=== PATIENT | female | born 1935 | race Caucasian/White ===

== ENCOUNTER → 2017-11-30 | Outpatient (REF) | payer MEDICARE, OTHER ==
[2017-11-30 16:53] LABS: BASO % 0.3 % (0.0-1.0); EOS # 0.1 10^3/uL (0.0-0.50); EOS % 0.8 % (0.0-3.0); HEMATOCRIT 33.7 % (36.0-47.0); HEMOGLOBIN 10.9 g/dl (12.0-15.5); IMMATURE GRANULOCYTE % 0.4 % (0-3.0); LYMPH % 10.4 % (24.0-44.0); MEAN CORPUSCULAR HEMOGLOBIN 30.9 pg (27.0-33.0); MEAN CORPUSCULAR HGB CONC 32.3 g/dl (32.0-36.5); MEAN CORPUSCULAR VOLUME 95.5 fl (80.0-96.0); MONO % 9.9 % (0.0-5.0); NEUTROPHILS # 7.7 10^3/uL (1.8-7.7); NEUTROPHILS % 78.2 % (36.0-66.0); PLATELET COUNT, AUTOMATED 279 10^3/uL (150-450); RED BLOOD COUNT 3.53 10^6/uL (4.00-5.40); WHITE BLOOD COUNT 9.9 10^3/uL (4.0-10.0)
[2017-11-30 17:04] LABS: APPEARANCE, URINE CLEAR (CLEAR); BACTERIA, URINE AUTO NEGATIVE (NEGATIVE); BILIRUBIN, URINE AUTO NEGATIVE (NEGATIVE); BLOOD, URINE BLOOD NEGATIVE (NEGATIVE); CALCIUM OXALATE CRYSTALS MODERATE; COLOR, URINE YELLOW (YELLOW); GLUCOSE, URINE (UA) AUTO NEGATIVE (NEGATIVE); KETONE, URINE AUTO TRACE mg/dL (NEGATIVE); LEUKOCYTE ESTERASE, URINE AUTO NEGATIVE (NEGATIVE); MUCUS, URINE SMALL (NEGATIVE); NITRITE, URINE AUTO NEGATIVE (NEGATIVE); PROTEIN, URINE AUTO NEGATIVE (NEGATIVE); RBC, URINE AUTO 0 /HPF (0-3); SPECIFIC GRAVITY URINE AUTO 1.026 (1.002-1.035); SQUAMOUS EPITHELIAL CELL UR AU 0 /HPF (0-6); UROBILINOGEN, URINE AUTO 0.2 mg/dL (0.0-2.0); WBC, URINE AUTO 1 /HPF (0-3)
[2017-11-30 17:13] LABS: ALBUMIN 2.9 GM/DL (3.2-5.2); ALBUMIN/GLOBULIN RATIO 0.73 (1.00-1.93); ALKALINE PHOSPHATASE 100 U/L (45-117); ALT/SGPT 65 U/L (12-78); ANION GAP 8 MEQ/L (8-16); AST/SGOT 62 U/L (7-37); BILIRUBIN,TOTAL 0.5 MG/DL (0.2-1.0); BLOOD UREA NITROGEN 18 MG/DL (7-18); CALCIUM LEVEL 8.6 MG/DL (8.8-10.2); CARBON DIOXIDE LEVEL 29 MEQ/L (21-32); CHLORIDE LEVEL 101 MEQ/L (98-107); CREATININE FOR GFR 0.51 MG/DL (0.55-1.30); GLOMERULAR FILTRATION RATE > 60.0 (>32); GLUCOSE, FASTING 87 MG/DL (70-100); POTASSIUM SERUM 3.9 MEQ/L (3.5-5.1); SODIUM LEVEL 138 MEQ/L (136-145); TOTAL PROTEIN 6.9 GM/DL (6.4-8.2)
== END ==
LOC: M SFHCCAPE 12:00
DX: R05 Cough (principal); Z79.899 Other long term (current) drug therapy
CPT/HCPCS: 84443

== ENCOUNTER → 2017-12-01 | Outpatient (CLI) | payer MEDICARE, OTHER | LOC: M CLY 11:05 | DX: R05 Cough (principal) | CPT/HCPCS: 71046 ==

== ENCOUNTER → 2018-12-30 | Outpatient (CLI) | payer MEDICARE, OTHER ==
--- NOTE | 2018-12-31 08:16 | REPMRS ---
Patient History The patient states she has not had a clinical breast exam in over a year. Patient has history of cancer in the right breast at age 81 and has history of Lymphoma at age 65. No known family history of cancer. Taking tamoxifen for 2 years. Digital Mammo Screening Bilat: December 30, 2018 - Exam #: [id number] Bilateral CC and MLO view(s) were taken. Technologist: Wendy Ornelas, Technologist Prior study comparison: December 2017, bilateral digital mammo screening bilat, performed at [facility]. April 07, 2017, bilateral digital woman screen mammo, performed at [facility]. April 04, 2016, bilateral digital woman screen mammo, performed at [facility]. FINDINGS: The breast tissue is heterogeneously dense. This may lower the sensitivity of mammography. There is a moderate amount of heterogeneously dense fibroglandular tissue which is fairly symmetric. There is no interval development of dominant mass, architectural distortion, or grouped microcalcification typical of malignancy. There has been no change in the appearance of the mammogram from the prior studies. 3-D tomosynthesis shows no additional findings. Assessment: BI-RADS/ACR category 1 mammogram. Negative Mammogram. Recommendation Routine screening mammogram of both breasts in 1 year (for women over age 40). This mammogram was interpreted with the aid of an FDA-approved computer-aided dectection system. Electronically Signed By: Ej Barrera MD 12/31/18 0816
== END ==
LOC: M RAD 11:08
PROVIDERS: ATTEND Internal Medicine Hematology & Oncology
DX: Z12.31 Encounter for screening mammogram for malignant neoplasm of breast (principal)

== ENCOUNTER 2019-12-01 07:43 | Inpatient (IN) | payer MEDICARE, OTHER ==
[~2019-12-01 07:43] MED LIST: CLINDAMYCIN 600 MG/50 ML PREMIX BAG ONE; HEPARIN SOD (PORCINE) 5000UNITS/ML 1ML VIAL/SYRINGE ONE; cefTRIAXone SOD 1GM VIAL (J0696 PER 250MG) ONE
[2019-12-01] MEDS ORDERED: DOXYCYCLINE HYCLATE 100MG/10ML VIAL ONE (10:21)
[2019-12-01] MEDS ORDERED: cefTRIAXone SOD 2 GM VIAL (J0696 PER 250MG) ONE (10:21)
[2019-12-01] MEDS ORDERED: cefTRIAXone SOD 2 GM VIAL (J0696 PER 250MG) As Ordered ONE (10:21)
[2019-12-01] MEDS ORDERED: DOXYCYCLINE HYCLATE 100MG/10ML VIAL As Ordered ONE (10:22)
[2019-12-01] MEDS ORDERED: ISOVUE-370 76% 100ML VIAL As Ordered ONE (11:33)
[2019-12-01] MEDS ORDERED: cefTRIAXone SOD 1GM VIAL (J0696 PER 250MG) As Ordered ONE (18:26)
[2019-12-01] MEDS ORDERED: CLINDAMYCIN 600 MG/50 ML PREMIX BAG As Ordered ONE (19:34)
[2019-12-01] MEDS ORDERED: HEPARIN SOD (PORCINE) 5000UNITS/ML 1ML VIAL/SYRINGE As Ordered ONE (21:37)
[2019-12-02] MEDS ORDERED: CLINDAMYCIN 600 MG/50 ML PREMIX BAG ONE ×3 (03:04→18:10)
[2019-12-02] MEDS ORDERED: CLINDAMYCIN 600 MG/50 ML PREMIX BAG As Ordered ONE ×3 (03:04→18:46)
[2019-12-02] MEDS ORDERED: HEPARIN SOD (PORCINE) 5000UNITS/ML 1ML VIAL/SYRINGE ONE ×2 (12:21→21:15)
[2019-12-02] MEDS ORDERED: HEPARIN SOD (PORCINE) 5000UNITS/ML 1ML VIAL/SYRINGE As Ordered ONE ×2 (13:29→21:15)
[2019-12-02] MEDS ORDERED: VARIBAR NECTAR 40% w/v 240ML SUSP BTL As Ordered ONE (14:16)
[2019-12-02] MEDS ORDERED: E-Z-PAQUE 96% w/w SUSP 176GM BTL As Ordered ONE (14:16)
[2019-12-02] MEDS ORDERED: VARIBAR PUDDING 40% w/v 230ML TUBE As Ordered ONE (14:16)
[2019-12-02] MEDS ORDERED: cefTRIAXone SOD 1GM VIAL (J0696 PER 250MG) As Ordered ONE (18:10)
[2019-12-02] MEDS ORDERED: cefTRIAXone SOD 1GM VIAL (J0696 PER 250MG) ONE (18:10)
[2019-12-03] MEDS ORDERED: CLINDAMYCIN 600 MG/50 ML PREMIX BAG ONE ×3 (03:26→19:00)
[2019-12-03] MEDS ORDERED: CLINDAMYCIN 600 MG/50 ML PREMIX BAG As Ordered ONE (03:26)
[2019-12-03] MEDS ORDERED: HEPARIN SOD (PORCINE) 5000UNITS/ML 1ML VIAL/SYRINGE ONE ×3 (06:02→21:29)
[2019-12-03] MEDS ORDERED: HEPARIN SOD (PORCINE) 5000UNITS/ML 1ML VIAL/SYRINGE As Ordered ONE ×3 (06:02→21:29)
[2019-12-03] MEDS ORDERED: ISOVUE-370 76% 100ML VIAL As Ordered ONE (12:38)
[2019-12-03] MEDS ORDERED: cefTRIAXone SOD 1GM VIAL (J0696 PER 250MG) ONE (18:50)
[2019-12-03] MEDS ORDERED: cefTRIAXone SOD 1GM VIAL (J0696 PER 250MG) As Ordered ONE (18:50)
[2019-12-04] MEDS ORDERED: CLINDAMYCIN 600 MG/50 ML PREMIX BAG ONE ×3 (03:00→19:00)
[2019-12-04] MEDS ORDERED: HEPARIN SOD (PORCINE) 5000UNITS/ML 1ML VIAL/SYRINGE ONE ×2 (06:20→14:53)
[2019-12-04] MEDS ORDERED: HEPARIN SOD (PORCINE) 5000UNITS/ML 1ML VIAL/SYRINGE As Ordered ONE ×2 (06:20→14:53)
[2019-12-04] MEDS ORDERED: cefTRIAXone SOD 1GM VIAL (J0696 PER 250MG) As Ordered ONE (18:20)
[2019-12-04] MEDS ORDERED: cefTRIAXone SOD 1GM VIAL (J0696 PER 250MG) ONE (18:20)
[2019-12-05] MEDS ORDERED: HEPARIN SOD (PORCINE) 5000UNITS/ML 1ML VIAL/SYRINGE As Ordered ONE ×4 (02:13→21:27)
[2019-12-05] MEDS ORDERED: HEPARIN SOD (PORCINE) 5000UNITS/ML 1ML VIAL/SYRINGE ONE ×4 (02:13→21:27)
[2019-12-05] MEDS ORDERED: CLINDAMYCIN 600 MG/50 ML PREMIX BAG ONE ×4 (02:22→23:00)
[2019-12-05] MEDS ORDERED: CLINDAMYCIN 600 MG/50 ML PREMIX BAG As Ordered ONE (02:22)
[2019-12-05] MEDS ORDERED: MAGNESIUM SULFATE 1GM/100ML D5W BAG (10MG/ML) As Ordered ONE (13:02)
[2019-12-05] MEDS ORDERED: MAGNESIUM SULFATE 1GM/100ML D5W BAG (10MG/ML) ONE (13:02)
[2019-12-05] MEDS ORDERED: cefTRIAXone SOD 1GM VIAL (J0696 PER 250MG) ONE (17:44)
[2019-12-05] MEDS ORDERED: cefTRIAXone SOD 1GM VIAL (J0696 PER 250MG) As Ordered ONE (17:44)
[2019-12-06] MEDS ORDERED: HEPARIN SOD (PORCINE) 5000UNITS/ML 1ML VIAL/SYRINGE As Ordered ONE ×3 (05:53→21:41)
[2019-12-06] MEDS ORDERED: HEPARIN SOD (PORCINE) 5000UNITS/ML 1ML VIAL/SYRINGE ONE ×3 (05:53→21:41)
[2019-12-06] MEDS ORDERED: MEGESTROL ES SUSP 625MG 5ML ORAL SYRINGE ONE (13:00)
[2019-12-06] MEDS ORDERED: cefTRIAXone SOD 1GM VIAL (J0696 PER 250MG) As Ordered ONE (17:47)
[2019-12-06] MEDS ORDERED: cefTRIAXone SOD 1GM VIAL (J0696 PER 250MG) ONE (17:47)
[2019-12-06] MEDS ORDERED: CLINDAMYCIN 600 MG/50 ML PREMIX BAG ONE (19:00)
[2019-12-07] MEDS ORDERED: CLINDAMYCIN 600 MG/50 ML PREMIX BAG ONE ×3 (03:00→19:00)
[2019-12-07] MEDS ORDERED: HEPARIN SOD (PORCINE) 5000UNITS/ML 1ML VIAL/SYRINGE ONE ×2 (14:08→21:03)
[2019-12-07] MEDS ORDERED: HEPARIN SOD (PORCINE) 5000UNITS/ML 1ML VIAL/SYRINGE As Ordered ONE ×2 (14:08→21:03)
[2019-12-07] MEDS ORDERED: cefTRIAXone SOD 1GM VIAL (J0696 PER 250MG) ONE (18:10)
[2019-12-07] MEDS ORDERED: cefTRIAXone SOD 1GM VIAL (J0696 PER 250MG) As Ordered ONE (18:10)
[2019-12-08] MEDS ORDERED: HEPARIN SOD (PORCINE) 5000UNITS/ML 1ML VIAL/SYRINGE As Ordered ONE ×3 (06:30→20:23)
[2019-12-08] MEDS ORDERED: HEPARIN SOD (PORCINE) 5000UNITS/ML 1ML VIAL/SYRINGE ONE ×3 (06:30→20:23)
[2019-12-08] MEDS ORDERED: MEGESTROL ES SUSP 625MG 5ML ORAL SYRINGE ONE ×2 (12:00→13:00)
[2019-12-08] MEDS ORDERED: cefTRIAXone SOD 1GM VIAL (J0696 PER 250MG) As Ordered ONE (17:10)
[2019-12-08] MEDS ORDERED: cefTRIAXone SOD 1GM VIAL (J0696 PER 250MG) ONE (17:10)
[2019-12-08] MEDS ORDERED: CLINDAMYCIN 600 MG/50 ML PREMIX BAG ONE (22:00)
[2019-12-09] MEDS ORDERED: HEPARIN SOD (PORCINE) 5000UNITS/ML 1ML VIAL/SYRINGE As Ordered ONE (05:51)
[2019-12-09] MEDS ORDERED: HEPARIN SOD (PORCINE) 5000UNITS/ML 1ML VIAL/SYRINGE ONE (05:51)
[2019-12-09] MEDS ORDERED: CLINDAMYCIN 600 MG/50 ML PREMIX BAG ONE (08:00)
[2019-12-09] MEDS ORDERED: MEGESTROL ES SUSP 625MG 5ML ORAL SYRINGE ONE (13:00)
[2020-01-07 07:24] LABS: APPEARANCE, URINE CLEAR (CLEAR); BACTERIA, URINE AUTO NEGATIVE (NEGATIVE); BILIRUBIN, URINE AUTO NEGATIVE (NEGATIVE); BLOOD, URINE BLOOD NEGATIVE (NEGATIVE); COLOR, URINE YELLOW (YELLOW); GLUCOSE, URINE (UA) AUTO NEGATIVE (NEGATIVE); KETONE, URINE AUTO NEGATIVE (NEGATIVE); LEUKOCYTE ESTERASE, URINE AUTO NEGATIVE (NEGATIVE); MUCUS, URINE SMALL (NEGATIVE); NITRITE, URINE AUTO NEGATIVE (NEGATIVE); PROTEIN, URINE AUTO NEGATIVE (NEGATIVE); RBC, URINE AUTO 2 /HPF (0-3); SQUAMOUS EPITHELIAL CELL UR AU 0 /HPF (0-6); UROBILINOGEN, URINE AUTO 0.2 mg/dL (0.0-2.0); WBC, URINE AUTO 1 /HPF (0-3)
[2020-01-08 13:41] LABS: BASO % 0.3 % (0.0-1.0); EOS % 0.3 % (0.0-3.0); HEMATOCRIT 36.4 % (36.0-47.0); HEMOGLOBIN 11.1 g/dl (12.0-15.5); LYMPH # 1.2 10^3/uL (1.5-5.0); LYMPH % 10.2 % (24.0-44.0); MEAN CORPUSCULAR HEMOGLOBIN 26.9 pg (27.0-33.0); MEAN CORPUSCULAR HGB CONC 30.5 g/dl (32.0-36.5); MEAN CORPUSCULAR VOLUME 88.1 fl (80.0-96.0); MONO # 0.8 10^3/uL (0.0-0.8); MONO % 6.5 % (0.0-5.0); NEUTROPHILS # 9.5 10^3/uL (1.5-8.5); NEUTROPHILS % 82.2 % (36.0-66.0); PLATELET COUNT, AUTOMATED 317 10^3/uL (150-450); RED BLOOD COUNT 4.13 10^6/uL (4.00-5.40); WHITE BLOOD COUNT 11.6 10^3/uL (4.0-10.0)
--- NOTE | 2020-01-19 13:29 | ECGEPIP ---
SINUS RHYTHM MARKED LEFT AXIS DEVIATION LEFT BUNDLE BRANCH BLOCK ABNORMAL ECG NO OLD AVAILABLE SEE SCANNED DOWNTIME REPORT MTDD
--- NOTE | 2020-01-23 09:40 | REP ---
CT PULMONARY ANGIOGRAM WITH IV CONTRAST: HISTORY: Dyspnea. Dysphagia. History of breast carcinoma status post radiation therapy and chemotherapy. CONTRAST DOSE: 100 ml of intravenous Isovue 370. COMPARISON: None available. FINDINGS: There is good opacification of the pulmonary arterial tree. There is no evidence of pulmonary embolus. The patient has a somewhat catechetic, extremely thin body habitus. There is advanced COPD. There is atelectatic change with air bronchograms and bronchiectasis in the right middle lobe. There are scattered bronchiectatic airways bilaterally in the lower lobes. A bronchitis pattern is seen with inspissated endobronchial secretions noted in several locations. There are scattered infiltrates in the right upper lobe, right lower lobe, left lower lobe consistent with pneumonia. There are granulomatous calcifications in the spleen. No pleural or pericardial effusion is seen. No hilar or mediastinal mass or adenopathy is observed. No adrenal lesion is seen. The study is otherwise unremarkable. IMPRESSION: No CT evidence of pulmonary embolus. Advanced COPD changes. Right middle lobe atelectasis. Scattered infiltrates bilateral in the lower lobes and in the right upper lobe consistent with pneumonia. Bronchitis pattern. MTDD
--- NOTE | 2020-01-23 09:41 | REP ---
COOKIE SWALLOW: The procedure was performed under the direct supervision of Dr. Barrera. The procedure was performed with Winnie Powell from Speech Pathology present. PROCEDURE: 5 cc aliquots of nectar, pudding, thin, mixed fruit, soft, solid and honey consistency barium was administered. There is no evidence of penetration or aspiration. A detailed report of this examination will be provided by Speech Pathology. 2 minutes of fluoroscopy time was utilized for this procedure. JORGE
[2020-01-23 14:25] LABS: HEMATOCRIT 32.1 % (36.0-47.0); MEAN CORPUSCULAR HEMOGLOBIN 27.5 pg (27.0-33.0); MEAN CORPUSCULAR HGB CONC 31.2 g/dl (32.0-36.5); MEAN CORPUSCULAR VOLUME 88.2 fl (80.0-96.0); PLATELET COUNT, AUTOMATED 275 10^3/uL (150-450); RED BLOOD COUNT 3.64 10^6/uL (4.00-5.40); WHITE BLOOD COUNT 6.8 10^3/uL (4.0-10.0)
[2020-01-24 17:23] LABS: BASO % 0.6 % (0.0-1.0); EOS # 0.1 10^3/uL (0.0-0.5); EOS % 2.6 % (0.0-3.0); HEMATOCRIT 38.4 % (36.0-47.0); LYMPH # 0.9 10^3/uL (1.5-5.0); LYMPH % 17.8 % (24.0-44.0); MEAN CORPUSCULAR HEMOGLOBIN 27.6 pg (27.0-33.0); MEAN CORPUSCULAR HGB CONC 31.3 g/dl (32.0-36.5); MEAN CORPUSCULAR VOLUME 88.3 fl (80.0-96.0); MONO # 0.4 10^3/uL (0.0-0.8); MONO % 7.2 % (0.0-5.0); NEUTROPHILS # 3.8 10^3/uL (1.5-8.5); NEUTROPHILS % 71.2 % (36.0-66.0); PLATELET COUNT, AUTOMATED 358 10^3/uL (150-450); RED BLOOD COUNT 4.35 10^6/uL (4.00-5.40); WHITE BLOOD COUNT 5.3 10^3/uL (4.0-10.0)
[2020-01-25 06:32] LABS: HEMATOCRIT 32.4 % (36.0-47.0); HEMOGLOBIN 10.3 g/dl (12.0-15.5); MEAN CORPUSCULAR HEMOGLOBIN 27.7 pg (27.0-33.0); MEAN CORPUSCULAR HGB CONC 31.8 g/dl (32.0-36.5); MEAN CORPUSCULAR VOLUME 87.1 fl (80.0-96.0); PLATELET COUNT, AUTOMATED 305 10^3/uL (150-450); RED BLOOD COUNT 3.72 10^6/uL (4.00-5.40); WHITE BLOOD COUNT 5.7 10^3/uL (4.0-10.0)
--- NOTE | 2020-01-25 13:43 | ECGEPIP ---
[facility] Test Date: 2019-12-07 Pat Name: MACK GONZALEZ Department: Room: [place] [address] Gender: Female Dope And Fabric Worker: NATALIIA : 1935 Requested By: MONIK Yo Order Number: [id number] Reading MD: Jr Gutiérrez Measurements Intervals [place] Rate: 70 P: 64 GA: 178 QRS: -15 QRSD: 150 T: 114 QT: 473 QTc: 510 Interpretive Statements NORMAL SINUS RHYTHM LBBB COMPARISON TRACING N/A SEE SCANNED DOWNTIME REPORT
[2020-01-25 21:01] LABS: HEMATOCRIT 34.6 % (36.0-47.0); HEMOGLOBIN 10.8 g/dl (12.0-15.5); MEAN CORPUSCULAR HEMOGLOBIN 27.4 pg (27.0-33.0); MEAN CORPUSCULAR HGB CONC 31.2 g/dl (32.0-36.5); MEAN CORPUSCULAR VOLUME 87.8 fl (80.0-96.0); PLATELET COUNT, AUTOMATED 318 10^3/uL (150-450); RED BLOOD COUNT 3.94 10^6/uL (4.00-5.40); WHITE BLOOD COUNT 6.7 10^3/uL (4.0-10.0)
[2020-02-04 08:48] LABS: HEMATOCRIT 39.6 % (36.0-47.0); HEMOGLOBIN 12.2 g/dl (12.0-15.5); MEAN CORPUSCULAR HEMOGLOBIN 27.1 pg (27.0-33.0); MEAN CORPUSCULAR HGB CONC 30.8 g/dl (32.0-36.5); PLATELET COUNT, AUTOMATED 425 10^3/uL (150-450); WHITE BLOOD COUNT 5.8 10^3/uL (4.0-10.0)
--- NOTE | 2020-02-10 14:56 | ECHO ---
DATE OF PROCEDURE: 12/01/2019 Age: 84 Gender: Female Height: 63 inches Weight: 78 pounds Body surface area 1.3 meters squared INPATIENT: [facility] 4230 REFERRING PHYSICIAN: Dr. Monroe INDICATION: Shortness of breath. MEASURMENTS: 2-D measurements: RV 3.5 cm LV 3.6 cm Septum 1.1 cm Posterior wall 1.1 cm Aortic root 3.1 cm LA 2.8 cm LVEF 60% DOPPLER MEASUREMENTS: AV 1.3 meters per second LVOT 1.1 meters per second LVOT diameter 1.8 cm MV- E 62, A 87, E/E ratio 0.7 Early mitral V acceleration time 164 milliseconds RVSP 21 mmHg IVC 0.8 cm COMMENTS: Normal sinus rhythm with intraventricular conduction disturbance. M-mode and 2-dimensional echocardiography was performed with pulse, continuous wave and color flow Doppler, but tissue Doppler was unsuccessful. Normal left ventricular size and wall thickness with a degree of septal wall motion abnormality ? left bundle branch block. The other wall motion was symmetrical and normal. Normal left atrial size with a grade 1 LV diastolic dysfunction, but unable to estimate mean left atrial pressure . Findings not outside normal limits for her age. Normal right heart chamber sizes, wall motion and estimated pulmonary arterial pressure. Reduced IVC size with normal collapse in keeping with relatively low central venous pressure. Normal aortic dimensions. Moderate aortic valvular sclerosis without stenosis, but at least moderate insufficiency. Mild mitral annular calcification with normal leaflet excursion and no posterior systolic buckling, but mild insufficiency. Normal appearing tricuspid valve with mild insufficiency. No apparent intracardiac mass or pericardial effusion. MTDD
[2020-02-12 15:16] LABS: BASO % 0.8 % (0.0-1.0); EOS # 0.2 10^3/uL (0.0-0.5); EOS % 2.8 % (0.0-3.0); HEMATOCRIT 34.2 % (36.0-47.0); HEMOGLOBIN 10.7 g/dl (12.0-15.5); LYMPH # 1.1 10^3/uL (1.5-5.0); LYMPH % 21.6 % (24.0-44.0); MEAN CORPUSCULAR HEMOGLOBIN 27.2 pg (27.0-33.0); MEAN CORPUSCULAR HGB CONC 31.3 g/dl (32.0-36.5); MEAN CORPUSCULAR VOLUME 86.8 fl (80.0-96.0); MONO # 0.5 10^3/uL (0.0-0.8); MONO % 10.2 % (0.0-5.0); NEUTROPHILS # 3.4 10^3/uL (1.5-8.5); NEUTROPHILS % 64.2 % (36.0-66.0); PLATELET COUNT, AUTOMATED 329 10^3/uL (150-450); RED BLOOD COUNT 3.94 10^6/uL (4.00-5.40); WHITE BLOOD COUNT 5.3 10^3/uL (4.0-10.0)
--- NOTE | 2020-02-15 13:20 | DSES ---
DATE OF ADMISSION: 12/01/2019 DATE OF DISCHARGE: 12/09/2019 PRIMARY DISCHARGE DIAGNOSES: * Dysphagia. * Aspiration pneumonia. * History of cerebrovascular accident (CVA) without residual. * History of chronic obstructive pulmonary disease (COPD). * Failure to thrive. * Severe protein-calorie malnutrition. * History of lymphoma in remission 2012. * 20 pound weight loss. DISCHARGE MEDICATIONS: * Evoxac 30 mg three times a day. * Lutein 20 mg daily. * Anastrozole 1 mg daily. * Iron 325 two times daily. * Montelukast 10 daily. * Brovana 15 mcg/2 mL two times a day. * Budesonide two times a day. * Ipratropium and Albuterol 3 mL nebulizer every four hours as needed for shortness of breath. DISCHARGE INSTRUCTIONS: Follow-up with primary care physician as outpatient within one week of hospital discharge. HOSPITAL COURSE: This is a female admitted due to complaints of cough and difficulty swallowing. Evaluated with swallow evaluation shown to be aspirating treated with intravenous (IV) ceftriaxone and clindamycin for seven days. No white count. No fever. Patient was placed on a dysphagia diet with thickened liquids. CT of the neck showed no acute pathology. CT of the lungs showed chronic COPD, atelectasis, air bronchograms, and scattered infiltrates in the left lower lobe. The patient was kept on IV antibiotics for a total of seven days. Dysphagia improved within several days and she was changed back to a regular diet and thin liquids with repeat evaluation. She passed a home safety evaluation and subsequently cleared for discharge home. Prior to discharge on December 07, the patient had a fall and had to be reevaluated. She said that she tripped on something with no acute injuries. DISCHARGE PHYSICAL EXAMINATION: VITAL SIGNS: Temperature 97.9, pulse 72, respiratory rate 17, blood pressure 116/54, 96% on room air. GENERAL: Patient is cachectic with bitemporal wasting. Appears older than her stated age. Disheveled with poor dentition. HEENT: Dry mucous membranes. Bitemporal wasting. NECK: No JVD. No thyromegaly. No cervical lymphadenopathy. LUNGS: Diminished with crackles bilateral bases. HEART: S1, S2. Sinus rhythm. No murmurs, rubs, or gallops. ABDOMEN: Soft, nontender, and nondistended with positive bowel sounds. EXTREMITIES: No cyanosis, clubbing, or pitting edema. Bilateral lower extremity muscle atrophy. DISCHARGE LABORATORY DATA: On 12/08/2019, sodium 137, potassium 4.4, chloride 102, bicarb 32, BUN 14, creatinine 0.42, glucose 79. On 12/07/2019, CBC white count 5.8, hemoglobin 12, hematocrit 39, platelet count 425,000. TIME SPENT ON DISCHARGE: 30 minutes. MTDD
[2020-02-22 08:59] LABS: ALBUMIN 2.3 GM/DL (3.2-5.2); ALT/SGPT 16 U/L (12-78); BILIRUBIN,TOTAL 0.5 MG/DL (0.2-1.0); BLOOD UREA NITROGEN 19 MG/DL (7-18); CALCIUM LEVEL 8.8 MG/DL (8.8-10.2); CARBON DIOXIDE LEVEL 35 MEQ/L (21-32); CHLORIDE LEVEL 101 MEQ/L (98-107); CK-MB VALUE MASS 1.6 NG/ML (<3.6); CPK CREATINE PHOSPHOKINASE 41 U/L (26-192); CREATININE FOR GFR 0.44 MG/DL (0.55-1.30); GLOMERULAR FILTRATION RATE > 60.0 (>32); GLUCOSE, FASTING 78 MG/DL (70-100); NT-PRO BNP 929 PG/ML (<450); POTASSIUM SERUM 3.9 MEQ/L (3.5-5.1); SODIUM LEVEL 139 MEQ/L (136-145); TOTAL PROTEIN 7.1 GM/DL (6.4-8.2); TROPONIN I < 0.02 NG/ML (< 0.10)
[2020-02-26 13:23] LABS: ALBUMIN 1.9 GM/DL (3.2-5.2); ALT/SGPT 12 U/L (12-78); BILIRUBIN,TOTAL 0.3 MG/DL (0.2-1.0); BLOOD UREA NITROGEN 12 MG/DL (7-18); CALCIUM LEVEL 8.3 MG/DL (8.8-10.2); CARBON DIOXIDE LEVEL 34 MEQ/L (21-32); CHLORIDE LEVEL 101 MEQ/L (98-107); CREATININE FOR GFR 0.32 MG/DL (0.55-1.30); GLOMERULAR FILTRATION RATE > 60.0 (>32); GLUCOSE, FASTING 97 MG/DL (70-100); POTASSIUM SERUM 3.7 MEQ/L (3.5-5.1); SODIUM LEVEL 138 MEQ/L (136-145); TOTAL PROTEIN 6.1 GM/DL (6.4-8.2)
[2020-02-27 10:03] LABS: BLOOD UREA NITROGEN 17 MG/DL (7-18); CALCIUM LEVEL 8.6 MG/DL (8.8-10.2); CARBON DIOXIDE LEVEL 32 MEQ/L (21-32); CHLORIDE LEVEL 102 MEQ/L (98-107); CREATININE FOR GFR 0.37 MG/DL (0.55-1.30); GLOMERULAR FILTRATION RATE > 60.0 (>32); GLUCOSE, FASTING 88 MG/DL (70-100); NT-PRO BNP 819 PG/ML (<450); POTASSIUM SERUM 5.4 MEQ/L (3.5-5.1); SODIUM LEVEL 137 MEQ/L (136-145)
[2020-02-27 16:41] LABS: BLOOD UREA NITROGEN 14 MG/DL (7-18); CALCIUM LEVEL 8.9 MG/DL (8.8-10.2); CARBON DIOXIDE LEVEL 32 MEQ/L (21-32); CHLORIDE LEVEL 102 MEQ/L (98-107); CREATININE FOR GFR 0.42 MG/DL (0.55-1.30); GLOMERULAR FILTRATION RATE > 60.0 (>32); GLUCOSE, FASTING 79 MG/DL (70-100); POTASSIUM SERUM 4.4 MEQ/L (3.5-5.1); SODIUM LEVEL 137 MEQ/L (136-145)
[2020-02-28 05:27] LABS: ALBUMIN 2.1 GM/DL (3.2-5.2); ALT/SGPT 14 U/L (12-78); BILIRUBIN,TOTAL 0.2 MG/DL (0.2-1.0); BLOOD UREA NITROGEN 9 MG/DL (7-18); CALCIUM LEVEL 8.2 MG/DL (8.8-10.2); CARBON DIOXIDE LEVEL 32 MEQ/L (21-32); CHLORIDE LEVEL 102 MEQ/L (98-107); CREATININE FOR GFR 0.27 MG/DL (0.55-1.30); GLOMERULAR FILTRATION RATE > 60.0 (>32); GLUCOSE, FASTING 96 MG/DL (70-100); POTASSIUM SERUM 3.6 MEQ/L (3.5-5.1); SODIUM LEVEL 138 MEQ/L (136-145); TOTAL PROTEIN 6.2 GM/DL (6.4-8.2)
[2020-02-28 10:02] LABS: BLOOD UREA NITROGEN 8 MG/DL (7-18); CALCIUM LEVEL 8.4 MG/DL (8.8-10.2); CARBON DIOXIDE LEVEL 34 MEQ/L (21-32); CHLORIDE LEVEL 98 MEQ/L (98-107); CREATININE FOR GFR 0.31 MG/DL (0.55-1.30); GLOMERULAR FILTRATION RATE > 60.0 (>32); GLUCOSE, FASTING 95 MG/DL (70-100); MAGNESIUM LEVEL 1.6 MG/DL (1.8-2.4); NT-PRO BNP 1837 PG/ML (<450); POTASSIUM SERUM 4.2 MEQ/L (3.5-5.1); SODIUM LEVEL 132 MEQ/L (136-145)
[2020-02-28 11:08] LABS: BLOOD UREA NITROGEN 8 MG/DL (7-18); CALCIUM LEVEL 8.4 MG/DL (8.8-10.2); CARBON DIOXIDE LEVEL 33 MEQ/L (21-32); CHLORIDE LEVEL 99 MEQ/L (98-107); GLOMERULAR FILTRATION RATE > 60.0 (>32); GLUCOSE, FASTING 91 MG/DL (70-100); SODIUM LEVEL 134 MEQ/L (136-145)
[2020-02-29 16:27] LABS: BLOOD UREA NITROGEN 10 MG/DL (7-18); CREATININE FOR GFR 0.44 MG/DL (0.55-1.30); GLOMERULAR FILTRATION RATE > 60.0 (>32); GLUCOSE, FASTING 173 MG/DL (70-100)
[2020-02-29 16:28] LABS: CARBON DIOXIDE LEVEL 33 mmol/L (20-29); CHLORIDE LEVEL 98 MEQ/L (98-107); FREE THYROXINE INDEX 2.8 % (1.3-4.8); MAGNESIUM LEVEL 1.8 MG/DL (1.8-2.4); POTASSIUM SERUM 4.5 MEQ/L (3.5-5.1); SODIUM LEVEL 133 MEQ/L (136-145); T UPTAKE 37 % (30-39); THYROXINE (T4) 7.7 UG/DL (4.5-12.0)
== END 2019-12-09 11:45 | disposition home health service (06) | DRG 177 ==
LOC: M ED 07:43 → M MSPAV 11:45
PROVIDERS: ADMIT General Practice; ATTEND General Practice
DX: J69.0 Pneumonitis due to inhalation of food and vomit (principal); E43 Unspecified severe protein-calorie malnutrition; J44.9 Chronic obstructive pulmonary disease, unspecified; Z86.73 Personal history of transient ischemic attack (TIA), and cerebral infarction without residual deficits; Z79.899 Other long term (current) drug therapy; Z85.72 Personal history of non-Hodgkin lymphomas; R13.10 Dysphagia, unspecified; E83.42 Hypomagnesemia; R62.7 Adult failure to thrive

== ENCOUNTER 2019-12-30 10:27 | Inpatient (IN) | payer MEDICARE, OTHER ==
[~2019-12-30] VITALS: Ht 160 cm; Wt 33.8 kg
[2019-12-30] MEDS ORDERED: MEGE40SU5 PO (10:35)
[2019-12-30] MEDS ORDERED: OXYB5TAB10 PO (10:35)
[2019-12-30] MEDS ORDERED: IPRA0.00 INH (10:35)
[2019-12-30 12:03] LABS: BASO % 0.2 % (0.0-1.0); EOS # 0.1 10^3/uL (0.0-0.5); EOS % 0.8 % (0.0-3.0); HEMATOCRIT 40.5 % (36.0-47.0); HEMOGLOBIN 12.6 g/dl (12.0-15.5); LYMPH # 1.1 10^3/uL (1.5-5.0); LYMPH % 12.9 % (24.0-44.0); MEAN CORPUSCULAR HEMOGLOBIN 28.8 pg (27.0-33.0); MEAN CORPUSCULAR HGB CONC 31.1 g/dl (32.0-36.5); MEAN CORPUSCULAR VOLUME 92.5 fl (80.0-96.0); MONO # 0.8 10^3/uL (0.0-0.8); MONO % 9.3 % (0.0-5.0); NEUTROPHILS # 6.6 10^3/uL (1.5-8.5); NEUTROPHILS % 76.3 % (36.0-66.0); PLATELET COUNT, AUTOMATED 252 10^3/uL (150-450); RED BLOOD COUNT 4.38 10^6/uL (4.00-5.40); WHITE BLOOD COUNT 8.6 10^3/uL (4.0-10.0)
--- NOTE | 2019-12-30 12:13 | REPVR ---
PROCEDURE INFORMATION: Exam: XR Chest, 1 View Exam date and time: 12/30/2019 11:25 AM Age: 84 years old Clinical indication: Cough; Additional info: Dyspnea/cough TECHNIQUE: Imaging protocol: XR of the chest Views: 1 view. COMPARISON: CR Chest, 1 view 12/01/2019 9:07 AM FINDINGS: Tubes, catheters and devices: Right chest wall port a catheter tip projects over the SVC. Lungs: Emphysematous changes. No focal consolidation. Linear atelectasis or scarring in the right mid lung. Pleural space: Unremarkable. No pleural effusion. No pneumothorax. Heart/Mediastinum: Stable mild prominence of the cardiac silhouette. Vasculature: Calcification of the thoracic aorta. Diaphragm: Stable mild elevation of the right hemidiaphragm. Bones/joints: Degenerative change and scoliotic curvature of the spine. IMPRESSION: No acute cardiopulmonary abnormality. Electronically signed by: Agustina Reyes On 12/30/2019 12:13:12 PM
[2019-12-30 12:28] LABS: ALBUMIN 3.1 GM/DL (3.2-5.2); BILIRUBIN,DIRECT 0.2 MG/DL (0.0-0.2); BILIRUBIN,TOTAL 0.5 MG/DL (0.2-1.0); TOTAL PROTEIN 7.8 GM/DL (6.4-8.2)
[2019-12-30] MEDS ORDERED: NS 500 ML IV ONE (12:45)
[2019-12-30] MEDS ORDERED: ISOVUE-370 76% 100ML VIAL As Ordered ONE (13:09)
--- NOTE | 2019-12-30 13:38 | REPVR ---
PROCEDURE INFORMATION: Exam: CT Angiography Chest With Contrast Exam date and time: 12/30/2019 1:12 PM Age: 84 years old Clinical indication: Shortness of breath; Additional info: Sob/garcia TECHNIQUE: Imaging protocol: Computed tomographic angiography of the chest with intravenous contrast. 3D rendering (Not supervised by radiologist): MIP and/or 3D reconstructed images were created by the technologist. Radiation optimization: All CT scans at this facility use at least one of these dose optimization techniques: automated exposure control; mA and/or kV adjustment per patient size (includes targeted exams where dose is matched to clinical indication); or iterative reconstruction. Contrast material: ISOVUE 370; Contrast volume: 75 ml; Contrast route: INTRAVENOUS (IV); COMPARISON: CR PORTABLE CHEST X-RAY 12/30/2019 11:21 AM FINDINGS: Tubes, catheters and devices: Right chest wall port a catheter terminates in the lower SVC. Pulmonary arteries: There are filling defects within pulmonary arterial branches supplying the left upper and left lower lobes. Filling defects in distal pulmonary arterial branches supplying the right lower lobe. No filling defect in the main pulmonary arteries. The main pulmonary arterial trunk is normal in caliber. Aorta: Unremarkable. No aortic aneurysm. No aortic dissection. Lungs: Subpleural scarring in the lung apices. Mild bronchiectasis, most pronounced in the right middle lobe. Tree-in-bud opacities, most pronounced in the lower lobes. Mild patchy consolidation in the right upper lobe and the lingula. Scattered mild endobronchial mucous plugging. Several noncalcified nodular opacities in both lungs, measuring up to 8 mm, in the left upper lobe (series 401, image 35). Pleural space: Unremarkable. No pneumothorax. No pleural effusion. Heart: No CT evidence of acute right ventricular heart strain. Aortic valve calcification. Coronary artery calcifications. Lymph nodes: Unremarkable. No enlarged lymph nodes. Liver: Calcified hepatic granuloma. Spleen: Calcified splenic granulomas. Bones/joints: Degenerative change of the spine. Soft tissues: Unremarkable. IMPRESSION: 1. Positive for bilateral pulmonary emboli, with a moderate clot burden. 2. Mild patchy pulmonary consolidation, endobronchial mucous plugging, and multiple tree-in-bud pulmonary opacities. Findings are suggestive of bronchopneumonia. 3. Diffuse bronchiectasis. 4. Noncalcified nodular opacities in both lungs, which may be infectious in nature. Recommend comparison with any prior CT examinations that are available. If none are available, recommend followup according to Fleischner criteria. Fleischner society recommendations for followup and management of pulmonary nodules in adults detected incidentally on screening CT (2017): Less than or equal to 6 mm (solitary or multiple): Low risk patients- no followup needed. High risk patients- optional CT in 12 months. 6-8 mm nodule (solitary): Low-risk patients- CT at 6-[address] at 18-24 months. High risk patients- CT at 6-12 months, then CT at 18-24 months. 6-8 mm nodule (multiple): Low-risk patients- CT at 3-[address] at 18-24 months. High risk patients- CT at 3-6 months, then CT at 18-24 months. >8 mm (solitary): Low-risk patients- consider CT, PET/CT, or tissue sampling at 3 months. High-risk patients- same as for low-risk patients. >8mm (multiple): Low-risk patients - CT at 3-6 months, then at 18-24 months. High-risk patients - same as for low risk patients. THIS REPORT CONTAINS FINDINGS THAT MAY BE CRITICAL TO PATIENT CARE. The findings were verbally communicated via telephone conference with CHIOMA MERCADO at 1:37 PM EDT on 12/30/2019. The findings were acknowledged and understood. Electronically signed by: Agustina Reyes On 12/30/2019 13:38:20 PM
[2019-12-30] MEDS ORDERED: HEPARIN DRIP 25,000 UNITS in IV 1 EA IV SCH (14:08)
[2019-12-30] MEDS ORDERED: HEPARIN SOD (PORCINE) 5000UNITS/ML 1ML VIAL/SYRINGE IV PRN (14:15)
[2019-12-30] MEDS ORDERED: OMEP1CAP73 PO (14:42)
[2019-12-30] MEDS ORDERED: CEVI1CAP PO (14:52)
[2019-12-30] MEDS ORDERED: amLODIPine 5 MG TAB PO ONE (16:00)
[2019-12-30] MEDS ORDERED: LevoFLOXacin IV 750 MG in IV 1 EA IV SCH (16:00)
[2019-12-30] MEDS ORDERED: ACETAMINOPHEN TAB 650MG DOSE (2X325MG) PO PRN (16:00)
--- NOTE | 2019-12-30 16:32 | HPEPDOC ---
[facility] Medical History & Physical Date of Admission Dec 30, 2019 Date of Service: Dec 30, 2019 Attending Physician: IVETTE GABRIEL MD History and Physical CHIEF COMPLAINT: Worsening Shortness of Breath HISTORY OF PRESENT ILLNESS: The patient is a 84 year old female with a history of COPD, recent admission for an Aspiration pneumonia(4weeks ago), presented to the ED with Worsening shortness of breath which has worsened. Her visiting home health aid had noted hypoxia on a pulse oximeter and advised her to come to the ER. On imaging she was found to have CT findings positive for bilateral pulmonary emboli, with a moderate clot burden, concerning for Pulmonary Embolism vs Pneumonia. Patient reports progressive shortness of breath, since her discharge from the hospital. Although notes after her PNA, her cough has resolved. Denies any chest pain, palpitations, orthopnea, PND, any recent surgery, not on any blood thinners, no recent travel, no fevers, no cough( other than baseline), Started Megesterol acetate a week ago after discharge from the hospital for increasing appetite, is taking Anastrozole for her breast cancer treatment, recently immobilized in the hospital. PAST MEDICAL HISTORY: 1. COPD 2. Rt breast Cancer( post lumpectomy)(2018) 3. Non Hodgkins Lymphoma (2002) 4.Sjogrens Disease 5.Stroke ( 2018) 6.Aspiration Pneumonia ( 2019) PAST SURGICAL HISTORY: 1. Hysterectomy SOCIAL HISTORY: Employment: Retired Tobacco use: Never Smoker ETOH: Occasional glass of wine Illicit drug use: None Other relevant social factors: None FAMILY HISTORY: Unremarkable ALLERGIES: Please see below. REVIEW OF SYSTEMS: CONSTITUTIONAL: Loss of weight of around 30 lbs over 10 years. HEENT: No discharge, CARDIOVASCULAR: No Orthopnea, No PND, No chest pain, GASTROINTESTINAL: No nausea, Vomiting, No constipation, GENITOURINARY: Night time urinary incontinence- present MUSCULOSKELETAL: No joint swelling, no joint pain NEUROLOGICAL: no vision changes, no dizziness, no headaches, HOME MEDICATIONS: Please see below. PHYSICAL EXAMINATION: VITAL SIGNS: See Below GENERAL APPEARANCE: The patient looked fine, not in any acute distress, talking in full sentences. HEENT: NC/AT, EOMI CARDIOVASCULAR: RRR , S1,S2 , No murmurs heard RESPIRATORY: Symmetrical chest expansion, mild wheezing at the bases heard, No crackles, no rhonchi ABDOMEN: ND/NT, No organomegaly , BS +. MUSCULOSKELETAL: Good range of motion in all joints. EXTREMITIES: No edema, no rash, Good regular pulses. NEUROLOGICAL: Good motor strength, Sensations intact. PSYCHIATRIC: AOx3,Normal mood and affect. LABORATORY DATA: See below. IMAGING: Positive for bilateral pulmonary emboli, with a moderate clot burden. 2. Mild patchy pulmonary consolidation, endobronchial mucous plugging, and multiple tree-in-bud pulmonary opacities. Findings are suggestive of bronchopneumonia. 3. Diffuse bronchiectasis. 4. Noncalcified nodular opacities in both lungs, which may be infectious in nature. MICROBIOLOGY: Please see below. ASSESSMENT & PLAN: The patient is a 84 year old female with a history of COPD, recent admission for an Aspiration pneumonia(4weeks ago), presented to the ED with Worsening shortness of breath found to have CT findings positive for bilateral pulmonary emboli, with a moderate clot burden,. Mild patchy pulmonary consolidation, endobronchial mucous plugging, and multiple tree-in-bud pulmonary opacities. Findings are suggestive of bronchopneumonia concerning for Pulmonary Embolism vs Pneumonia vs COPD exacerbation. 1.Shortness of breath: > Pulmonary Embolism: Based on the CT findings - Risk factors for hypercoagulable state - Medications: Megesterol acetate and Anastrozole - Previous history of cancers (NHL, Breast cancer) - Previous history of an embolic stroke; it is very likely to be a PE - Start a Heparin drip. - The patient has tachypnea, started on Oxygen to be (titrated on 88-92%) - Put on Telemetry for monitoring, troponin trend, ECHO (stat), duplex US of LE >Pneumonia: Based on the CT evidence. -Predisposition to Pneumonia due to difficulty swallowing -procalcitonin ordered to find out whether it is (viral /bacterial) -sputum culture -blood culture ordered -IV Levoquin 500 mg Q24 started -Acapella and Incentive spirometry 2. Elevated BNP - No evidence of fluid overload - likely 2/2 PE, unlikely 2/2 CHF - Will check ECHO 3. Urinary retention - c/w home medications 4. DVT prophylaxis - c/w full anticoagulation with Heparin drip 5.HTN: -Amplodipine 5 mg one dose now. -Will consider IV medications if persistently hypertensive; Vital Signs Vital Signs Date Time Temp Pulse Resp B/P (MAP) Pulse Ox O2 Delivery O2 Flow Rate FiO2 12/30/19 14:58 97.9 84 20 170/74 (106) 12/30/19 10:28 96 Room Air Laboratory Data Labs 24H Laboratory Tests 2 12/30/19 11:35: Immature Granulocyte % (Auto) 0.5, Neutrophils (%) (Auto) 76.3H, Lymphocytes (%) (Auto) 12.9L, Monocytes (%) (Auto) 9.3H, Eosinophils (%) (Auto) 0.8, Basophils (%) (Auto) 0.2, Neutrophils # (Auto) 6.6, Lymphocytes # (Auto) 1.1L, Monocytes # (Auto) 0.8, Eosinophils # (Auto) 0.1, Basophils # (Auto) 0.0, Nucleated Red Blood Cells % (auto) 0.0, Total Bilirubin 0.5, Direct Bilirubin 0.2, Aspartate Amino Transf (AST/SGOT) 22, Alanine Aminotransferase (ALT/SGPT) 21, Alkaline Phosphatase 82, YX-Vls-E-Type Natriuretic Peptide 1994H, Total Protein 7.8, Albumin 3.1L, Albumin/Globulin Ratio 0.7L CBC/BMP Laboratory Tests 12/30/19 11:35 Home Medications Scheduled Amlodipine Besylate (Amlodipine Besylate) 5 Mg Tablet, 5 MG PO BID Cevimeline HCl (Cevimeline HCl) 30 Mg Capsule, 30 MG PO Q8H Ipratropium/Albuterol Sulfate (Iprat-Albut 0.5-3(2.5) mg/3 ml) 3 Ml Ampul.neb, 1 FOUZIA INH BID Levofloxacin (Levaquin) 500 Mg Tablet, 500 MG PO DAILY Omeprazole (Omeprazole) 20 Mg Capsule.dr, 20 MG PO DAILY Rivaroxaban (Xarelto) 15 Mg Tablet, 15 MG PO BID@08,18 Take one tab 15 mg twice daily (morning and evening) for 21 days with food followed by 20 mg one tab daily with food . Allergies Coded Allergies: No Known Allergies (Verified Allergy, Unknown, 12/30/19) A-FIB/CHADSVASC A-FIB History Current/History of A-Fib/PAF?: No GME ATTESTATION GME ATTESTATION My faculty preceptor for this patient encounter was physically present during the encounter and was fully available. All aspects of the patient interview, examination, medical decision making process, and medical care plan development were reviewed and approved by the faculty preceptor. The faculty preceptor is aware and concurs with the plan as stated in the body of this note and will attest to such by his/her cosignature. ATTENDING NOTE I, Ivette Gabriel, have independently examined this patient and performed my own physical exam, as well as reviewed the documentation and edited where necessary. I have discussed in detail with the resident / student the findings and plan of treatment as documented by the resident / student and edited their note. I agree with their findings and treatment plan and have edited their documentation. I will continue to follow the patient during this hospital stay. Shaji Russell MD Dec 30, 2019 16:32 IVETTE GABRIEL MD Dec 30, 2019 17:54
[2019-12-30] MEDS ORDERED: LevoFLOXacin IV 500 MG in IV 1 EA IV SCH (18:00)
[2019-12-30 18:30] VITALS: BP 190/70
[2019-12-30 20:00] VITALS: BP_SYST 130; BP_SYST 142; BP_DIAS 58; BP_DIAS 85
[2019-12-30] MEDS: IPRATROPIUM 0.5MG/ALBUTEROL 2.5MG INH SOL UD 3ML (DUONEB) INH SCH ×2 (20:00→23:36)
[2019-12-30 20:53] LABS: MB/CK RELATIVE INDEX 4.55 (< OR =4); TROPONIN I 0.05 NG/ML (< 0.10)
--- NOTE | 2019-12-30 22:06 | REPVR ---
PROCEDURE INFORMATION: Exam: US Duplex Lower Extremity Veins, Bilateral Exam date and time: 12/30/2019 9:46 PM Age: 84 years old Clinical indication: Shortness of breath and bilateral pulmonary emboli. TECHNIQUE: Imaging protocol: Real-time duplex ultrasound of the extremities with 2-D hays scale, color Doppler flow and spectral waveform analysis with image documentation. Complete exam focused on the bilateral lower extremity veins. COMPARISON: No relevant prior studies available. FINDINGS: Right deep veins: Unremarkable. The common femoral, femoral, and popliteal veins are patent without thrombus. Normal compressibility, augmentation response and Doppler waveforms. Right superficial veins: Saphenofemoral junction is patent without thrombus. Left deep veins: Unremarkable. The common femoral, femoral, and popliteal veins are patent without thrombus. Normal compressibility, augmentation response and Doppler waveforms. Left superficial veins: Saphenofemoral junction is patent without thrombus. Soft tissues: Unremarkable. IMPRESSION: No deep vein thrombosis in the veins imaged in both lower extremities. Electronically signed by: Horacio Henley On 12/30/2019 22:06:07 PM
[2019-12-31] VITALS: BP 146/68
[2019-12-31 02:14] LABS: CK-MB VALUE MASS 4.1 NG/ML (<3.6); MB/CK RELATIVE INDEX 4.77 (< OR =4); TROPONIN I 0.04 NG/ML (< 0.10)
[2019-12-31] MEDS: IPRATROPIUM 0.5MG/ALBUTEROL 2.5MG INH SOL UD 3ML (DUONEB) INH SCH ×3 (03:47→13:14)
[2019-12-31 04:00] VITALS: BP 142/70
[2019-12-31 08:00] VITALS: BP 178/70
[2019-12-31] MEDS ORDERED: RIVAROXABAN 15 MG TAB (XARELTO) PO SCH (08:00)
[2019-12-31 08:54] LABS: BASO % 0.5 % (0.0-1.0); EOS # 0.1 10^3/uL (0.0-0.5); EOS % 1.2 % (0.0-3.0); HEMATOCRIT 36.7 % (36.0-47.0); HEMOGLOBIN 11.5 g/dl (12.0-15.5); LYMPH # 1.1 10^3/uL (1.5-5.0); LYMPH % 14.4 % (24.0-44.0); MEAN CORPUSCULAR HEMOGLOBIN 28.4 pg (27.0-33.0); MEAN CORPUSCULAR HGB CONC 31.3 g/dl (32.0-36.5); MEAN CORPUSCULAR VOLUME 90.6 fl (80.0-96.0); MONO # 0.7 10^3/uL (0.0-0.8); MONO % 8.5 % (0.0-5.0); NEUTROPHILS # 5.9 10^3/uL (1.5-8.5); PLATELET COUNT, AUTOMATED 217 10^3/uL (150-450); RED BLOOD COUNT 4.05 10^6/uL (4.00-5.40); WHITE BLOOD COUNT 7.8 10^3/uL (4.0-10.0)
[2019-12-31 08:55] VITALS: BP 178/70
[2019-12-31] MEDS ORDERED: amLODIPine 5 MG TAB PO SCH ×2 (09:00)
--- NOTE | 2019-12-31 09:10 | IPNPDOC ---
Text Note Date of Service The patient was seen on 12/31/19. NOTE S: Inpatient Day 2 - The patient complains of having a disturbed sleep last night due to a severe urgency to pass urine but she could not, a condom catheter was placed. In the morning , the suction container is empty and the patient is still complaining of urgency. She has no other issues as per the patient. O: Miss Fowler is lying comfortably on the bed, in no acute distress. VS,Fishbone, I+O VS, Fishbone, I+O Laboratory Tests 12/30/19 11:35 Vital Signs Date Time Temp Pulse Resp B/P (MAP) Pulse Ox O2 Delivery O2 Flow Rate FiO2 12/31/19 08:00 98.5 76 24 178/70 (106) 96 Room Air I&O- Last 24 Hours up to 6 AM 12/31/19 06:00 Intake Total 500 ml Output Total 0 ml Balance 500 ml Shaji Russell MD Dec 31, 2019 08:34
[2019-12-31 09:11] LABS: BLOOD UREA NITROGEN 12 MG/DL (7-18); CALCIUM LEVEL 8.6 MG/DL (8.8-10.2); CARBON DIOXIDE LEVEL 32 MEQ/L (21-32); CHLORIDE LEVEL 104 MEQ/L (98-107); CREATININE FOR GFR 0.39 MG/DL (0.55-1.30); GLOMERULAR FILTRATION RATE > 60.0 (>32); GLUCOSE, FASTING 83 MG/DL (70-100); MAGNESIUM LEVEL 1.8 MG/DL (1.8-2.4); POTASSIUM SERUM 3.6 MEQ/L (3.5-5.1); SODIUM LEVEL 140 MEQ/L (136-145)
[2019-12-31 12:00] VITALS: BP 130/58
[2019-12-31] MEDS ORDERED: XARE15TA PO (13:57)
[2019-12-31] MEDS ORDERED: AMLO1TAB24 PO (13:57)
[2019-12-31] MEDS ORDERED: LEVA1TAB2 PO (13:57)
--- NOTE | 2019-12-31 15:11 | DS.PDOC ---
Discharge Summary General Date of Admission Dec 30, 2019 at 15:43 Date of Discharge dec 31 2019 Attending Physician: IVETTE CHOW MD Specialist/Consultants Involve PCP: Dr Uriel Whitley Discharge Summary PROCEDURES PERFORMED DURING STAY: [None]. ADMITTING DIAGNOSES/ DISCHARGE DIAGNOSES: Bilateral Pulmonary Embolism and Bronchopulmonary Pneumonia COMPLICATIONS/CHIEF COMPLAINT: Worsening Shortness of Breath HISTORY OF PRESENT ILLNESS: Miss Fowler is a 84 year old female who presented to the emergency department with worsening shortness of breath found to have low Oxygen Saturation which was noticed by her home health nurse, she has a history of COPD, Right Breast cancer, Non Hodgkin's lymphoma, Sjogrens Disease, Stroke (2018), Recent Aspiration Pneumonia. Recently started taking Megesterol acetate a week ago as an appetite stimulant. She takes Anastrozole, for her Breast cancer s/p Lumpectomy and follows up with her Oncologist. HOSPITAL COURSE: The patient is a 84 year old female with a history of COPD, recent admission for an Aspiration pneumonia(4weeks ago), presented to the ED with Worsening shortness of breath found to have CT Angio was positive for bilateral pulmonary emboli, with a moderate clot burden,. Mild patchy pulmonary consolidation, endobronchial mucous plugging, and multiple tree-in-bud pulmonary opacities. Findings are suggestive of bronchopneumonia concerning for Pulmonary Embolism vs Pneumonia vs COPD exacerbation.The patient had worsening shortness of breath yesterday and tachypnea. Her troponins were negative - Patient was immediately started on a Heparin drip; transitioned to Xarelto - Oxygenation has remained >95$ on room air - Pt was put on Telemetry. The patient today is stable has normal vitals and in no acute distress. - Troponin negative x 3 - ECHO showed Grade 1 LV diastolic dysfunction. Mild RVH, PA systolic pressure 38 mm Hg. Mild aortic valve sclerosis with mild AR. Abdominal aortic atheroma. Her Megesterol Acetate was stopped . - For the pneumonia the patient was started on Levaquin 500 mg Q24. - Blood cultures and sputum cultures are still pending. BNP was elevated but there was no evidence of fluid overload. - c/w Acapella and incentive spirometry was ordered - c/w inhaled therapy as ordered -HTN: Her blood pressure was 194/98 for which Amlodipine was started 5 mg BID. Blood pressures came down to 146/68. and have been stable ever since. -Urinary retention- The patient had some urinary urgency last night- purwick was placed which was empty in the morning - A bladder scan was ordered which showed less than 200 ml volume and she started urinating soon after frequently in small amounts. Her oxybutynin was held and stopped altogether. The patient is comfortable as of now. DISCHARGE MEDICATIONS: Please see below. ALLERGIES: Please see below. PHYSICAL EXAMINATION ON DISCHARGE: VITAL SIGNS: Please see below. GENERAL: The patient looks comfortable lying in the bed. No distress. HEENT: AT/NC. EOMI NECK: No thyromegaly, No LAD CARDIOVASCULAR EXAMINATION: RRR normal , S1, S2 heard, NO murmurs RESPIRATORY EXAMINATION: Clear to auscultation, No crackles/ wheezing. ABDOMINAL EXAMINATION: ND/NT, No organomegaly EXTREMITIES: Pulse regular. NEUROLOGICAL EXAMINATION: Good motor control. sensations intact. PSYCHIATRIC EXAMINATION: Alert oriented x3. Normal affect, good mood. LABORATORY DATA: Please see below. IMAGIN. Positive for bilateral pulmonary emboli, with a moderate clot burden. 2. Mild patchy pulmonary consolidation, endobronchial mucous plugging, and multiple tree-in-bud pulmonary opacities. Findings are suggestive of bronchopneumonia. 3. Diffuse bronchiectasis. 4. Noncalcified nodular opacities in both lungs, which may be infectious in nature. PROGNOSIS: Fair ACTIVITY: [As tolerated]. DIET: As Tolerated DISCHARGE PLAN: -The patient will be substituted to oral anticoagulation 15 mg Xeralto for 21 days followed by 20 mg once daily . -Oral Antibiotics levaquin 5oo mg ordered for 7 days daily - for Pneumonia. -Continue home medications for COPD. -Stop Megesterol acetate for (thrombosis risk) and oxybutynin (for risk of urinary retention) DISPOSITION:The patient is breathing with no difficulty, Shortness of breath is better Oxygen Saturation is 96 % on room air , labs and vitals are normal. DISCHARGE INSTRUCTIONS: 1. Please continue taking oral antibiotics for 7 days at home for Pneumonia 2. Please continue Xarelto as instructed for Pulmonary Embolism 3. Please come to the ER if you experience any problems ITEMS TO FOLLOWUP ON ON OUTPATIENT: 1. Follow up with PCP in 7 days . DISCHARGE CONDITION: [Stable]. TIME SPENT ON DISCHARGE: 40 minutes. Vital Signs/I&Os Vital Signs Date Time Temp Pulse Resp B/P (MAP) Pulse Ox O2 Delivery O2 Flow Rate FiO2 8/29/20 12:00 98.6 95 24 130/58 (82) 96 Room Air I&O- Last 24 Hours up to 6 AM 12/31/19 06:00 Intake Total 500 ml Output Total 0 ml Balance 500 ml Laboratory Data Labs 24H Laboratory Tests 2 12/30/19 19:00: Activated Partial Thromboplast Time 26.9 12/30/19 20:13: Total Creatine Kinase 88, Creatine Kinase MB 4.0H, Creatine Kinase MB Relative Index 4.55H, Troponin I 0.05 12/31/19 01:41: Activated Partial Thromboplast Time 26.3, Total Creatine Kinase 86, Creatine Kinase MB 4.1H, Creatine Kinase MB Relative Index 4.77H, Troponin I 0.04 12/31/19 08:26: Activated Partial Thromboplast Time 29.1, Immature Granulocyte % (Auto) 0.4, Neutrophils (%) (Auto) 75.0H, Lymphocytes (%) (Auto) 14.4L, Monocytes (%) (Auto) 8.5H, Eosinophils (%) (Auto) 1.2, Basophils (%) (Auto) 0.5, Neutrophils # (Auto) 5.9, Lymphocytes # (Auto) 1.1L, Monocytes # (Auto) 0.7, Eosinophils # (Auto) 0.1, Basophils # (Auto) 0.0, Nucleated Red Blood Cells % (auto) 0.0, Anion Gap 4L, Glomerular Filtration Rate > 60.0, Calcium Level 8.6L, Magnesium Level 1.8 CBC/BMP Laboratory Tests 12/31/19 08:26 Microbiology Microbiology 12/30/19 Blood Culture, Received Pending 12/30/19 Blood Culture, Received Pending Discharge Medications Scheduled Amlodipine Besylate (Amlodipine Besylate) 5 Mg Tablet, 5 MG PO BID Cevimeline HCl (Cevimeline HCl) 30 Mg Capsule, 30 MG PO Q8H, (Reported) Ipratropium/Albuterol Sulfate (Iprat-Albut 0.5-3(2.5) mg/3 ml) 3 Ml Ampul.neb, 1 FOUZIA INH BID, (Reported) Levofloxacin (Levaquin) 500 Mg Tablet, 500 MG PO DAILY Omeprazole (Omeprazole) 20 Mg Capsule.dr, 20 MG PO DAILY, (Reported) Rivaroxaban (Xarelto) 15 Mg Tablet, 15 MG PO BID@08,18 Take one tab 15 mg twice daily (morning and evening) for 21 days with food followed by 20 mg one tab daily with food . Allergies Coded Allergies: No Known Allergies (Verified Allergy, Unknown, 12/30/19) GME ATTESTATION GME ATTESTATION My faculty preceptor for this patient encounter was physically present during the encounter and was fully available. All aspects of the patient interview, examination, medical decision making process, and medical care plan development were reviewed and approved by the faculty preceptor. The faculty preceptor is aware and concurs with the plan as stated in the body of this note and will attest to such by his/her cosignature. ATTENDING NOTE I, Ivette Chow, have independently examined this patient and performed my own physical exam, as well as reviewed the documentation and edited where necessary. I have discussed in detail with the resident / student the findings and plan of treatment as documented by the resident / student and edited their note. I agree with their findings and treatment plan and have edited their documentation. I will continue to follow the patient during this hospital stay. Time spent on discharge 35 minutes Shaji Russell MD Dec 31, 2019 14:11 IVETET CHOW MD Dec 31, 2019 16:18
--- NOTE | 2020-01-03 13:48 | ECHO ---
DATE OF PROCEDURE: 12/30/2019 Age: 84 Gender: Female REFERRING PHYSICIAN: Dr. Santosh Sandhu. INDICATION: Dyspnea. MEASUREMENTS: 2D Measurements: Left atrium 3.7 cm Aortic root 2.5 cm Inferior vena cava 1.2 cm (more than 50% respiratory variation) Doppler Measurements: Mild aortic regurgitation No aortic stenosis Aortic valve velocity 145 cm/s LVOT velocity 129 cm/s LVOT VTI 22.3 cm No mitral regurgitation No mitral stenosis Mitral E velocity 68.1 cm/s Mitral A velocity 82.9 cm/s Mild tricuspid regurgitation Estimated right ventricular systolic pressure 36-41 mmHg No pulmonic regurgitation Pulmonary artery systolic pressure 38 mmHg MITRAL ANNULAR TISSUE DOPPLER E prime septal 4.7 cm/s, E prime lateral 6.6 cm/s DESCRIPTION: Rhythm was sinus. Image quality was fair. No pericardial effusion. This was a 2D, M-mode, color flow Doppler, and pulsed wave Doppler examination including mitral annular tissue Doppler. CONCLUSIONS: 1. Hyperdynamic left ventricle systolic function. No regional wall motion abnormalities of the left ventricle. Normal LV wall thickness. LVEF 70-75% by visual estimate. Grade 1 LV diastolic dysfunction. 2. Mild aortic valve sclerosis of a 3-cuspid aortic valve. Mild aortic regurgitation. 3. Suggestive of mild-moderate elevation of estimated right ventricle systolic pressure and mild elevation of pulmonary artery systolic pressure. Normal right ventricle size with mild right ventricle hypertrophy of the right ventricle free wall and hyperdynamic LV systolic function. Mild tricuspid regurgitation. 4. Mild mitral annular calcification. No mitral regurgitation. 5. Presence of atheroma involving the upper abdominal aorta. 6. Otherwise normal appearing echocardiogram Doppler findings. [facility]
--- NOTE | 2020-01-17 13:29 | ECGEPIP ---
[facility] - ED Test Date: 2019-12-30 Pat Name: MACK GONZALEZ Department: Room: - Gender: Female Lead Etl Developer: PAVITHRA : 1935 Requested By: Sonja Carranza Order Number: [id number] Reading MD: Sonja Carranza Measurements Intervals [place] Rate: 83 P: 66 IN: 162 QRS: -37 QRSD: 138 T: 119 QT: 431 QTc: 508 Interpretive Statements SINUS RHYTHM WITH OCCASIONAL SUPRAVENTRICULAR PREMATURE COMPLEXES MARKED LEFT AXIS DEVIATION INTRAVENTRICULAR CONDUCTION DELAY LEFT VENTRICULAR HYPERTROPHY AND ST-T CHANGE ABNORMAL ECG SEE SCANNED DOWNTIME REPORT
--- NOTE | 2020-01-20 16:59 | ECGEPIP ---
[facility] Test Date: 2019-12-31 Pat Name: MACK GONZALEZ Department: Room: [place] [address] Gender: Female Piping Manager: JULI : 1935 Requested By: HAZEL CASTANON Order Number: [id number] Reading MD: Margot Clinton Measurements Intervals [place] Rate: 91 P: 70 SD: 157 QRS: -41 QRSD: 141 T: 124 QT: 395 QTc: 486 Interpretive Statements SINUS RHYTHM POSSIBLE LEFT ATRIAL ENLARGEMENT LEFT AXIS DEVIATION LEFT BUNDLE BRANCH BLOCK ABNORMAL ECG SEE SCANNED DOWNTIME REPORT
== END 2019-12-31 16:04 | disposition home or self-care (01) | DRG 175 ==
LOC: M ED 10:27 → M ED INP 15:43 → M PCU 18:26
PROVIDERS: ADMIT Internal Medicine; ATTEND Internal Medicine
DX: I26.99 Other pulmonary embolism without acute cor pulmonale (principal); J18.0 Bronchopneumonia, unspecified organism; J44.9 Chronic obstructive pulmonary disease, unspecified; Z85.3 Personal history of malignant neoplasm of breast; M35.00 Sjogren syndrome, unspecified; R33.9 Retention of urine, unspecified; Z79.01 Long term (current) use of anticoagulants; Z86.73 Personal history of transient ischemic attack (TIA), and cerebral infarction without residual deficits; Z79.899 Other long term (current) drug therapy

== ENCOUNTER 2020-01-04 10:20 | Inpatient (IN) | payer MEDICARE, OTHER ==
[~2020-01-04] VITALS: Ht 160 cm; Wt 34.6 kg
[~2020-01-04 10:20] MED LIST changes: +AMLO1TAB24 PO; +CEVI1CAP PO; -CLINDAMYCIN 600 MG/50 ML PREMIX BAG ONE; -HEPARIN SOD (PORCINE) 5000UNITS/ML 1ML VIAL/SYRINGE ONE; +IPRA0.00 INH; +LEVA1TAB2 PO; +MEGE40SU5 PO; +OMEP1CAP73 PO; +OXYB5TAB10 PO; +XARE15TA PO; -cefTRIAXone SOD 1GM VIAL (J0696 PER 250MG) ONE
[2020-01-04] MEDS ORDERED: NORV5TAB PO (10:33)
[2020-01-04] MEDS ORDERED: SING10TA32 PO (10:33)
[2020-01-04] MEDS ORDERED: OMEP-218 (10:33)
[2020-01-04] MEDS ORDERED: FERR325T3 PO (10:33)
[2020-01-04] MEDS ORDERED: ANAS1TAB2 PO (10:33)
[2020-01-04] MEDS ORDERED: ATOR1TAB19 PO (10:33)
[2020-01-04] MEDS ORDERED: MYRB25TA PO (10:33)
[2020-01-04] MEDS: METOPROLOL 5 MG/5 ML VIAL IV SCH ×7 (11:40→20:41)
[2020-01-04 12:10] LABS: BASO % 0.1 % (0.0-1.0); HEMATOCRIT 38.3 % (36.0-47.0); HEMOGLOBIN 11.8 g/dl (12.0-15.5); LYMPH # 0.5 10^3/uL (1.5-5.0); LYMPH % 3.8 % (24.0-44.0); MEAN CORPUSCULAR HEMOGLOBIN 29.1 pg (27.0-33.0); MEAN CORPUSCULAR HGB CONC 30.8 g/dl (32.0-36.5); MEAN CORPUSCULAR VOLUME 94.6 fl (80.0-96.0); MONO % 7.3 % (0.0-5.0); NEUTROPHILS # 12.4 10^3/uL (1.5-8.5); NEUTROPHILS % 87.9 % (36.0-66.0); PLATELET COUNT, AUTOMATED 269 10^3/uL (150-450); RED BLOOD COUNT 4.05 10^6/uL (4.00-5.40); WHITE BLOOD COUNT 14.1 10^3/uL (4.0-10.0)
[2020-01-04 12:15] LABS: ABG PARTIAL PRESSURE CO2 39.4 mmHg (35.0-45.0); ABG pH (ARTERIAL) 7.437 UNITS (7.350-7.450)
[2020-01-04 12:16] LABS: ABG BASE EXCESS 1.8 (-2.0-2.0); ABG O2 SATURATION 96.7 % (95.0-99.0); ABG PARTIAL PRESSURE O2 81.5 mmHg (75.0-100.0); ABG TOTAL CO2 27.2 MEQ/L (23.0-31.0)
[2020-01-04 12:23] LABS: INR 2.98; PROTHROMBIN TIME 31.7 SECONDS (11.8-14.0)
[2020-01-04] MEDS ORDERED: ISOVUE-370 76% 100ML VIAL As Ordered ONE (12:31)
[2020-01-04 12:40] LABS: ALT/SGPT 23 U/L (12-78); BILIRUBIN,DIRECT 0.2 MG/DL (0.0-0.2); BILIRUBIN,TOTAL 0.6 MG/DL (0.2-1.0); CK-MB VALUE MASS 1.7 NG/ML (<3.6); CPK CREATINE PHOSPHOKINASE 41 U/L (26-192); LIPASE 39 U/L (73-393); MB/CK RELATIVE INDEX 4.15 (< OR =4); NT-PRO BNP 4570 PG/ML (<450); TOTAL PROTEIN 8.5 GM/DL (6.4-8.2); TROPONIN I < 0.02 NG/ML (< 0.10)
--- NOTE | 2020-01-04 13:12 | REPVR ---
PROCEDURE INFORMATION: Exam: CT Abdomen And Pelvis With Contrast Exam date and time: 01/04/2020 12:56 PM Age: 84 years old Clinical indication: Abdominal pain; Additional info: Ruq/rlq pain TECHNIQUE: Imaging protocol: Computed tomography of the abdomen and pelvis with intravenous contrast. Radiation optimization: All CT scans at this facility use at least one of these dose optimization techniques: automated exposure control; mA and/or kV adjustment per patient size (includes targeted exams where dose is matched to clinical indication); or iterative reconstruction. Contrast material: ISO 370; Contrast volume: 100 ml; Contrast route: INTRAVENOUS (IV); COMPARISON: No relevant prior studies available. FINDINGS: Evaluation is somewhat limited due to the arterial phase of enhancement. Inferior thorax: Bronchial dilatation, interstitial prominence, and airspace disease; the latter which is disproportionately localized in the right middle lobe and lingula. Cardiomegaly and mild left ventricular hypertrophy. Liver: Hepatic dome calcification. Gallbladder and bile ducts: No cholelithiasis or biliary ductal dilatation. Pancreas: No pancreatic mass or ductal dilatation. Spleen: Splenic granulomata. Adrenals: Unremarkable adrenals. Kidneys and ureters: Inferior displacement of the right kidney by the enlarged liver. Punctate renal hypodensities which are too small to accurately characterize. No hydronephrosis. Stomach and bowel: Bowel dilatation, disproportionately involving the colon, along with prominent stool. Appendix: Appendix not visualized. Intraperitoneal space: No significant free fluid. Vasculature: Vascular calcification. No abdominal aortic aneurysm. Lymph nodes: Subcentimeter lymph nodes. Bladder: Bladder dilatation. Reproductive: Status post hysterectomy. Bones/joints: Osteopenia. Degenerative change, disc bulging, and Schmorl's nodes. Soft tissues: Punctate bilateral breast calcifications. IMPRESSION: 1. Bronchial dilatation, interstitial prominence, and airspace disease; the latter which is disproportionately localized in the right middle lobe and lingula. Small loculated right anterior pleural effusion. 2. Bowel dilatation, disproportionately involving the colon, along with prominent stool. 3. Additional findings as described above. COMMENTS: Consistent with the [employer]'s Incidental Findings Committee white paper (J Am Juanito Radiol 2018): Any incidental renal lesion less than 1.0 cm or classified as too small to characterize, or any incidental cystic renal lesion characterized as simple-appearing, is likely benign. No follow-up imaging is recommended for these lesions per consensus recommendations based on imaging criteria. Electronically signed by: Bipin Santiago On 01/04/2020 13:12:20 PM
--- NOTE | 2020-01-04 13:14 | REPVR ---
PROCEDURE INFORMATION: Exam: XR Chest, 2 Views Exam date and time: 01/04/2020 1:07 PM Age: 84 years old Clinical indication: Pain; Other: Right flank; Additional info: Elevated bnp, tachycardia TECHNIQUE: Imaging protocol: XR of the chest Views: 2 views. COMPARISON: CR PORTABLE CHEST X-RAY 12/30/2019 11:21 AM FINDINGS: Tubes, catheters and devices: Stable positioning of med port catheter. Lungs: Emphysematous change and interstitial prominence. Pleural space: Mild apical pleural thickening. No significant pleural effusion. Heart/Mediastinum: Borderline cardiomegaly. Vasculature: Calcification of the thoracic aorta. Diaphragm: Asymmetric elevation of the right hemidiaphragm. Bones/joints: Osteopenia, degenerative change, and scoliosis. When correlating with the previous study, no significant interval changes are present. IMPRESSION: Stable appearance of the chest, not significantly changed from 12/30/19. Electronically signed by: Bipin Santiago On 01/04/2020 13:14:24 PM
--- NOTE | 2020-01-04 14:21 | HPEPDOC ---
General Date of Admission Date of Service: Jan 04, 2020 Chief Complaint The patient is a 84-year-old female admitted with a reason for visit of Pain In R Flank. Source: Patient Exam Limitations: Mild cognitive slowing Timing/Duration: Other (since yesterday) Severity: Severe Associated Symptoms: Other (flank pain (RT)) History of Present Illness 84 year old female with a history of COPD, recent admission for an Aspiration pneumonia(4weeks ago)and Bronchial PNA /PE (few days ago) presented to the ED with Chief complaint of Rt flank pain According to the pt. she developed pressure like pain at rt flank since yesterday, non radiating, 12/11, persistant, no associated symptoms, not relievd with any meds or change of position neither got worse with food intake. No urinary symptoms, no SOB or CP. Incidently pt was founf in AFIB with RVR in ED, we were called in to admit patient. Note: pt is a poor historian due to possible dementia. Home Medications Scheduled Amlodipine Besylate (Norvasc) 5 Mg Tablet, 1 TAB PO DAILY, (Reported) Anastrozole (Anastrozole) 1 Mg Tablet, 1 TAB PO DAILY, (Reported) Atorvastatin Calcium (Atorvastatin Calcium) 10 Mg Tablet, 1 TAB PO DAILY, (Reported) Cevimeline HCl (Cevimeline HCl) 30 Mg Capsule, 30 MG PO Q8H, (Reported) Ferrous Sulfate (Ferrous Sulfate) 325 Mg Tablet.dr, 1 TAB PO DAILY, (Reported) Ipratropium/Albuterol Sulfate (Iprat-Albut 0.5-3(2.5) mg/3 ml) 3 Ml Ampul.neb, 1 FOUZIA INH BID, (Reported) Levofloxacin (Levaquin) 500 Mg Tablet, 500 MG PO DAILY Mirabegron (Myrbetriq) 25 Mg Tab.er.24h, 1 TAB PO DAILY, (Reported) Montelukast Sodium (Singulair) 10 Mg Tablet, 1 TAB PO DAILY, (Reported) Omeprazole (Omeprazole) 20 Mg Capsule.dr, 20 MG PO DAILY, (Reported) Rivaroxaban (Xarelto) 15 Mg Tablet, 15 MG PO BID@08,18 Take one tab 15 mg twice daily (morning and evening) for 21 days with food followed by 20 mg one tab daily with food . Miscellaneous Medications Omeprazole (Omeprazole) 20 Mg Capsule., (Reported) Allergies Coded Allergies: No Known Allergies (Verified Allergy, Unknown, 12/30/19) Past Medical History Medical History 1.COPD 2.Rt breast Cancer( post lumpectomy)(2019) 3.Non Hodgkins Lymphoma (2003) 4.Sjogrens Disease 5.Stroke ( 2019) 6.Aspiration Pneumonia ( 2019) 7.PE (2019) 8.Bronchial Pneumonia (2019) Surgical History Hysterectomy Family History reviewed, non contributory Social History * Smoker: Denies Alcohol: Denies Drugs: denies lives with significant other A-FIB/CHADSVASC A-FIB History Current/History of A-Fib/PAF?: No Current PO Anticoag Therapy: Yes Review of Systems Constitutional: Denies: Chills, Fever, Malaise, Night Sweats, Weakness, Fatigue, Weight Loss, Lethargy, Other Eyes: Denies: Pain, Vision change, Conjunctivae inflammation, Eyelid inflamma tion, Redness, Other ENT: Denies: Head Aches, Ear Pain, Dysphagia, Sinus Congestion, Post Nasal Drip, Sore Throat, Epistaxis, Other Symptoms Skin: Denies: Rash, Lesions, Jaundice, Bruising, Itching, Dry, Breakdown, Nail Changes, Other Pulmonary: Denies: Dyspnea, Cough, Pleuritic Chest Pain, Other Symptoms Cardiovascular: Denies: Chest Pain, Palpitations, Orthopnea, Paroxysmal Noc. Dyspnea, Edema, Lt Headedness, Other Symptoms Gastrointestinal: Reports: Abdominal Pain (rt flank pain) Genitourinary: Denies: Dysuria, Frequency, Incontinence, Hematuria, Retention, Other Symptoms Hematologic: Denies: Bruising, Bleeding Excessively, Petecchia, Purpura, Enlarged Lymph Nodes, Other Hematologic Endocrine: Denies: Polydipsia, Polyphagia, Polyuria, Heat Intolerance, Cold Intolerance, Other Endocrine Sx Musculoskeletal: Denies: Neck Pain, Back Pain, Shoulder Pain, Arm Pain, Hand Pain, Leg Pain, Foot Pain, Joint Pain, Muscle Pain, Spasms, Other Symptoms Neurological: Denies: Weakness, Numbness, Incoordination, Change in speech, Confusion, Seizures, Other Symptoms Psych: Denies: Mood Normal, Anxiety, Depression, Memory Issues, Thoughts of Self Harm, Anger, Thoughts of Harming Other, Other Psych Physical Examination General Exam: Positive: Alert, Cooperative Eye Exam: Positive: PERRLA, Conjunctiva & lids normal ENT Exam: Positive: Atraumatic, Mucous membr. moist/pink Neck Exam: Positive: Supple Chest Exam: Positive: Clear to auscultation, Normal air movement Heart Exam: Positive: Rate Normal, Normal S1, Normal S2 Telemetry: Positive: Atrial fibrillation Abdomen Exam: Positive: Normal bowel sounds, Soft, Tenderness Extremity Exam: Positive: Normal pulses Skin Exam: Positive: Nl turgor and temperature Neuro Exam: Positive: Strength at 5/5 X4 ext, Cranial Nerves 3-12 NL Psych Exam: Positive: Mood NL, Oriented x 3 Vital Signs Vital Signs Date Time Temp Pulse Resp B/P (MAP) Pulse Ox O2 Delivery O2 Flow Rate FiO2 01/04/20 12:15 118 32 104/68 (80) 96 Room Air 01/04/20 10:21 98.1 Laboratory Data Labs 24H Laboratory Tests 2 01/04/20 11:03: Immature Granulocyte % (Auto) 0.9, Neutrophils (%) (Auto) 87.9H, Lymphocytes (%) (Auto) 3.8L, Monocytes (%) (Auto) 7.3H, Eosinophils (%) (Auto) 0.0, Basophils (%) (Auto) 0.1, Neutrophils # (Auto) 12.4H, Lymphocytes # (Auto) 0.5L, Monocytes # (Auto) 1.0H, Eosinophils # (Auto) 0.0, Basophils # (Auto) 0.0, Nucleated Red Blood Cells % (auto) 0.0, Prothrombin Time 31.7H, Prothromb Time International Ratio 2.98, Activated Partial Thromboplast Time 49.0H, Total Bilirubin 0.6, Direct Bilirubin 0.2, Aspartate Amino Transf (AST/SGOT) 24, Alanine Aminotransferase (ALT/SGPT) 23, Alkaline Phosphatase 87, Total Creatine Kinase 41, Creatine Kinase MB 1.7, Creatine Kinase MB Relative Index 4.15H, Troponin I < 0.02, TW-Bmq-S-Type Natriuretic Peptide 4570H, Total Protein 8.5H, Albumin 3.0L, Albumin/Globulin Ratio 0.5L, Lipase 39L 01/04/20 11:38: Blood Gas Bicarbonate Standard 26.0, Arterial Blood pH 7.437, Arterial Blood Partial Pressure CO2 39.4, Arterial Blood Partial Pressure O2 81.5, Arterial Bl ood Total CO2 27.2, Arterial Blood HCO3 26.0, Arterial Blood Base Excess 1.8, Arterial Blood Oxygen Saturation 96.7 01/04/20 12:47: Urine Color YELLOW, Urine Appearance HAZY, Urine pH 5.0, Urine Specific [place] 1.023, Urine Protein 1+H, Urine Glucose (UA) 1+H, Urine Ketones NEGATIVE, Urine Blood NEGATIVE, Urine Nitrite NEGATIVE, Urine Bilirubin NEGATIVE, Urine Urobilinogen 0.2, Urine Leukocyte Esterase NEGATIVE, Urine WBC (Auto) 4H, Urine RBC (Auto) 6H, Urine Hyaline Casts (Auto) 5, Urine Bacteria (Auto) NEGATIVE, Urine Squamous Epithelial Cells 0, Urine Mucus (Auto) SMALL, Urine Sperm (Auto) CBC/BMP Laboratory Tests 01/04/20 11:03 Problems (1) Atrial fibrillation with rapid ventricular response Status: Acute Problem Text: 84 YO WF admitted with Dx of new Afib with RVR. pt recieved two doses of Lopressor 5mg with improvement in her VR. Admit pt to PCU Pts INR is 2.98 with Xarelto, hence will continue the same for PE as well as Afib Metorolol 2.5 mg IV q 6Hr to control VR with holding parameter, once HR is controlled then will switch to long acting PO BB. Diet : regular Activity: bed rest with commode DVT prophylaxis ; xarelto Cardio consult: Dr haro called from ED (2) History of pulmonary embolus (PE) Status: Chronic Problem Text: Pt recently Dx with moderate load PE on 12/30/19 Pt was discharged home next day on PO anti coagulation Will continue Xarelto and monitor INR as it is high. (3) History of pneumonia Status: Acute Problem Text: Pt recently developed aspireation as well Bronchila PNA, but was DC without anti Bx as procalc were WNL Again put seems like has LLL process with wbc count of 14.[address] chest without contrast to see any new changes. will start teflaro as prophylactic broad spectrum anti Bx Follow labs and clinical course sputum CS Urine legionella serum mycoplasma (4) COPD exacerbation Status: Acute Problem Text: Duoneb q 6hr and proventil q2 hr PRN Solumedrol 40mg IV q 12 hr acpella and incentisve spirometry O2 as needed Plan / VTE VTE Prophylaxis Ordered?: Yes ALISA YEE MD Jan 04, 2020 14:21
[2020-01-04] MEDS ORDERED: XARE15TA PO (14:24)
[2020-01-04] MEDS ORDERED: LEVA1TAB2 PO (14:24)
[2020-01-04] MEDS ORDERED: LUTE20TA2 PO (14:27)
[2020-01-04] MEDS ORDERED: MOM 30ML SUSPENSION UDC PO PRN (14:30)
[2020-01-04] MEDS ORDERED: ACETAMINOPHEN TAB 650MG DOSE (2X325MG) PO PRN (14:30)
[2020-01-04] MEDS ORDERED: MAALOX 30 ML SUSP *UDC PO PRN (14:30)
[2020-01-04] MEDS ORDERED: ALBUTEROL SULFATE 2.5 MG/0.5 ML INH NEB SOLN NEB PRN (14:30)
[2020-01-04] MEDS ORDERED: amLODIPine 5 MG TAB PO PRN (14:45)
--- NOTE | 2020-01-04 15:36 | REPVR ---
PROCEDURE INFORMATION: Exam: CT Chest Without Contrast Exam date and time: 01/04/2020 3:10 PM Age: 84 years old Clinical indication: Chest pain; Additional info: Ll linfiltrate TECHNIQUE: Imaging protocol: Computed tomography of the chest without contrast. 3D rendering (Not supervised by radiologist): MIP and/or 3D reconstructed images were created by the technologist. Radiation optimization: All CT scans at this facility use at least one of these dose optimization techniques: automated exposure control; mA and/or kV adjustment per patient size (includes targeted exams where dose is matched to clinical indication); or iterative reconstruction. COMPARISON: CT ANGIO CHEST 12/30/2019 1:08 PM FINDINGS: Tubes, catheters and devices: Termination of med port catheter in the distal superior vena cava. Lungs: COPD, bronchiectasis, and interstitial disease with a reticulonodular component. Bilateral airspace disease, disproportionately localized in the right middle lobe and lingula. Additional poorly defined parenchymal density in the posterior segment of the right upper lobe. Bronchial calcification. Stable poorly defined nodular density in the left upper lobe. Pleural space: Biapical scarring. Trace pleural effusions. Heart: Borderline cardiomegaly and coronary artery calcification. Pulmonary arteries: Reassessment of previously documented pulmonary emboli cannot be performed in the absence of intravenous contrast. Aorta: Calcification and ectasia of the thoracic aorta. No Lymph nodes: No pathologically enlarged lymph nodes. Upper abdomen: Splenic granulomata. Left collecting system contrast. Left adrenal enlargement. Bones/joints: Degenerative change, Schmorl's nodes, and mild degenerative change. Soft tissues: Punctate bilateral breast calcifications. When correlating with the previous study, no significant interval changes are present. IMPRESSION: Stable appearance of the chest, not significantly changed from 12/30/19. Electronically signed by: Bipin Santiago On 01/04/2020 15:35:41 PM
[2020-01-04] MEDS ORDERED: CEFTAROLINE FOSAMIL 300 MG in D5W MINI-BAG PLUS 50 ML IV SCH (16:00)
[2020-01-04] MEDS: CEFTAROLINE FOSAMIL 300 MG in D5W 50 ML IV SCH (16:02)
[2020-01-04 19:00] VITALS: BP 136/81
[2020-01-04 20:00] VITALS: BP 118/76
[2020-01-04] MEDS: IPRATROPIUM 0.5MG/ALBUTEROL 2.5MG INH SOL UD 3ML (DUONEB) NEB SCH (20:14)
[2020-01-04] MEDS: RIVAROXABAN 15 MG TAB (XARELTO) PO SCH (20:41)
[2020-01-04] MEDS: DOCUSATE SODIUM 100 MG CAP PO SCH (20:41)
[2020-01-04] MEDS ORDERED: SLF 3 ML SYR IV PRN (21:00)
[2020-01-04] MEDS: SLF 3 ML SYR IV SCH (22:31)
[2020-01-05] VITALS: BP 120/74
[2020-01-05] MEDS: METOPROLOL 5 MG/5 ML VIAL IV SCH (01:00)
[2020-01-05] MEDS: IPRATROPIUM 0.5MG/ALBUTEROL 2.5MG INH SOL UD 3ML (DUONEB) NEB SCH ×4 (01:47→19:23)
[2020-01-05 04:00] VITALS: BP 124/82
[2020-01-05] MEDS: SLF 3 ML SYR IV SCH ×3 (05:12→21:11)
[2020-01-05] MEDS: CEFTAROLINE FOSAMIL 300 MG in D5W 50 ML IV SCH ×2 (05:12→19:32)
[2020-01-05 06:03] LABS: HEMATOCRIT 37.6 % (36.0-47.0); HEMOGLOBIN 11.4 g/dl (12.0-15.5); MEAN CORPUSCULAR HEMOGLOBIN 28.9 pg (27.0-33.0); MEAN CORPUSCULAR HGB CONC 30.3 g/dl (32.0-36.5); MEAN CORPUSCULAR VOLUME 95.4 fl (80.0-96.0); PLATELET COUNT, AUTOMATED 262 10^3/uL (150-450); RED BLOOD COUNT 3.94 10^6/uL (4.00-5.40); WHITE BLOOD COUNT 8.4 10^3/uL (4.0-10.0)
[2020-01-05 06:27] LABS: ALBUMIN 2.5 GM/DL (3.2-5.2); ALT/SGPT 33 U/L (12-78); BILIRUBIN,TOTAL 0.5 MG/DL (0.2-1.0); BLOOD UREA NITROGEN 34 MG/DL (7-18); CALCIUM LEVEL 9.9 MG/DL (8.8-10.2); CARBON DIOXIDE LEVEL 28 MEQ/L (21-32); CHLORIDE LEVEL 107 MEQ/L (98-107); CREATININE FOR GFR 0.49 MG/DL (0.55-1.30); GLOMERULAR FILTRATION RATE > 60.0 (>32); GLUCOSE, FASTING 113 MG/DL (70-100); MAGNESIUM LEVEL 2.1 MG/DL (1.8-2.4); POTASSIUM SERUM 4.2 MEQ/L (3.5-5.1); SODIUM LEVEL 141 MEQ/L (136-145); TOTAL PROTEIN 7.4 GM/DL (6.4-8.2)
[2020-01-05 08:00] VITALS: BP 144/82
[2020-01-05] MEDS: OMEPRAZOLE 20 MG CAP PO SCH (08:36)
[2020-01-05] MEDS: FERROUS SULFATE 325MG TAB PO SCH (08:37)
[2020-01-05] MEDS: RIVAROXABAN 15 MG TAB (XARELTO) PO SCH ×2 (08:37→21:11)
[2020-01-05] MEDS: MONTELUKAST 10 MG TAB PO SCH (08:37)
[2020-01-05] MEDS: DOCUSATE SODIUM 100 MG CAP PO SCH ×2 (08:37→21:11)
[2020-01-05] MEDS: METOPROLOL TART 25 MG TABLET PO SCH ×3 (08:38→21:11)
--- NOTE | 2020-01-05 10:30 | IPNPDOC ---
Subjective Date Seen The patient was seen on 01/05/20. Subjective Chief Complaint/HPI Pt feeling tired, just converted to NSR General: Denies: ROS Unobtainable, Chills, Night Sweats, Fatigue, Malaise, Normal Appetite, Other Symptoms Constitutional: Reports: Weakness Pulmonary: Denies: Dyspnea, Cough, Pleuritic Chest Pain, Other Symptoms Cardiovascular: Denies: Chest Pain, Palpitations, Orthopnea, Paroxysmal Noc. Dyspnea, Edema, Lt Headedness, Other Symptoms Gastrointestinal: Denies: Nausea, Vomiting, Abdominal Pain, Diarrhea, Constipation, Melena, Hematochezia, Other Symptoms Musculoskeletal: Denies: Neck Pain, Back Pain, Shoulder Pain, Arm Pain, Hand Pain, Leg Pain, Foot Pain, Joint Pain, Muscle Pain, Spasms, Other Symptoms Neurological: Denies: Weakness, Numbness, Incoordination, Change in speech, Confusion, Seizures, Other Symptoms Psych: Denies: Mood Normal, Anxiety, Depression, Memory Issues, Thoughts of Self Harm, Anger, Thoughts of Harming Other, Other Psych Objective Physical Examination Neck Exam: Positive: Supple Chest Exam: Positive: Clear to auscultation, Normal air movement Heart Exam: Positive: Rate Normal, Normal S1, Normal S2 Telemetry: Positive: Atrial fibrillation Abdomen Exam: Positive: Normal bowel sounds, Soft, Tenderness Extremity Exam: Positive: Normal pulses Skin Exam: Positive: Nl turgor and temperature Neuro Exam: Positive: Strength at 5/5 X4 ext, Cranial Nerves 3-12 NL Assessment /Plan Problems (1) Atrial fibrillation with rapid ventricular response Status: Acute Problem Text: 84 YO WF admitted with Dx of new Afib with RVR. pt recieved two doses of Lopressor 5mg with improvement in her VR. Admit pt to PCU Pt is on Xarelto, hence will continue the same for PE as well as Afib IV metoprolol was DC and pt started on Metoprolol 25 mg PO 2 Hr, can be changed to LA form in am Diet : regular Activity: As tolerated DVT prophylaxis ; xarelto PT eval (2) History of pulmonary embolus (PE) Status: Chronic Problem Text: Pt recently Dx with moderate load PE on 12/30/19 Pt was discharged home next day on PO anti coagulation Will continue Xarelto and monitor INR as it is high. (3) COPD exacerbation Status: Acute Problem Text: Duoneb q 6hr and proventil q2 hr PRN Continue IV solumedrol, can be change to PO prednisone in am as pt is improving. acpella and incentisve spirometry O2 as needed (4) History of pneumonia Status: Acute Problem Text: Pt recently developed aspireation as well Bronchila PNA, but was DC without anti Bx as procalc were WNL Again put seems like has LLL process with wbc count of 14.1on admission, decreased to 8.[address] chest: report pending will start teflaro as prophylactic broad spectrum anti Bx Follow labs and clinical course sputum CS pending Urine legionella pending serum mycoplasma pending Plan/VTE VTE Prophylaxis Ordered?: Yes VS, I&O, 24H, Fishbone Vital Signs/I&O Vital Signs Date Time Temp Pulse Resp B/P (MAP) Pulse Ox O2 Delivery O2 Flow Rate FiO2 01/05/20 08:38 133 130/78 01/05/20 08:00 99.1 20 96 Room Air I&O- Last 24 Hours up to 6 AM 01/05/20 06:00 Intake Total 0 ml Output Total 0 ml Balance 0 ml Laboratory Data 24H LABS Laboratory Tests 2 01/04/20 11:03: Immature Granulocyte % (Auto) 0.9, Neutrophils (%) (Auto) 87.9H, Lymphocytes (%) (Auto) 3.8L, Monocytes (%) (Auto) 7.3H, Eosinophils (%) (Auto) 0.0, Basophils (%) (Auto) 0.1, Neutrophils # (Auto) 12.4H, Lymphocytes # (Auto) 0.5L, Monocytes # (Auto) 1.0H, Eosinophils # (Auto) 0.0, Basophils # (Auto) 0.0, Nucleated Red Blood Cells % (auto) 0.0, Prothrombin Time 31.7H, Prothromb Time International Ratio 2.98, Activated Partial Thromboplast Time 49.0H, Total Bilirubin 0.6, Direct Bilirubin 0.2, Aspartate Amino Transf (AST/SGOT) 24, Alanine Aminotransferase (ALT/SGPT) 23, Alkaline Phosphatase 87, Total Creatine Kinase 41, Creatine Kinase MB 1.7, Creatine Kinase MB Relative Index 4.15H, Troponin I < 0.02, LP-Qvz-L-Type Natriuretic Peptide 4570H, Total Protein 8.5H, Albumin 3.0L, Albumin/Globulin Ratio 0.5L, Lipase 39L 01/04/20 11:38: Blood Gas Bicarbonate Standard 26.0, Arterial Blood pH 7.437, Arterial Blood Partial Pressure CO2 39.4, Arterial Blood Partial Pressure O2 81.5, Arterial Blood Total CO2 27.2, Arterial Blood HCO3 26.0, Arterial Blood Base Excess 1.8, Arterial Blood Oxygen Saturation 96.7 01/04/20 12:47: Urine Color YELLOW, Urine Appearance HAZY, Urine pH 5.0, Urine Specific [place] 1.023, Urine Protein 1+H, Urine Glucose (UA) 1+H, Urine Ketones NEGATIVE, Urine Blood NEGATIVE, Urine Nitrite NEGATIVE, Urine Bilirubin NEGATIVE, Urine Urobilinogen 0.2, Urine Leukocyte Esterase NEGATIVE, Urine WBC (Auto) 4H, Urine RBC (Auto) 6H, Urine Hyaline Casts (Auto) 5, Urine Bacteria (Auto) NEGATIVE, Urine Squamous Epithelial Cells 0, Urine Mucus (Auto) SMALL, Urine Sperm (Auto) 01/04/20 16:19: Lactic Acid Level 1.8 01/05/20 05:36: Nucleated Red Blood Cells % (auto) 0.0, Anion Gap 6L, Glomerular Filtration Rate > 60.0, Calcium Level 9.9, Magnesium Level 2.1, Total Bilirubin 0.5, Aspartate Amino Transf (AST/SGOT) 31, Alanine Aminotransferase (ALT/SGPT) 33, Alkaline Phosphatase 88, Total Protein 7.4, Albumin 2.5L, Albumin/Globulin Ratio 0.5L CBC/BMP Laboratory Tests 01/04/20 11:03 01/05/20 05:36 ALISA YEE MD Jan 05, 2020 10:30
[2020-01-05 12:00] VITALS: BP 136/69
[2020-01-05 16:00] VITALS: BP 142/72
[2020-01-05 20:00] VITALS: BP 96/59
[2020-01-06] VITALS: BP 114/75
[2020-01-06] MEDS: IPRATROPIUM 0.5MG/ALBUTEROL 2.5MG INH SOL UD 3ML (DUONEB) NEB SCH ×4 (01:39→19:47)
[2020-01-06 04:00] VITALS: BP 119/81
[2020-01-06] MEDS: SLF 3 ML SYR IV SCH ×3 (05:17→21:01)
[2020-01-06] MEDS: CEFTAROLINE FOSAMIL 300 MG in D5W 50 ML IV SCH (05:17)
[2020-01-06 05:39] LABS: BASO % 0.2 % (0.0-1.0); EOS % 0.8 % (0.0-3.0); HEMATOCRIT 36.7 % (36.0-47.0); HEMOGLOBIN 11.2 g/dl (12.0-15.5); LYMPH # 0.9 10^3/uL (1.5-5.0); LYMPH % 18.6 % (24.0-44.0); MEAN CORPUSCULAR HEMOGLOBIN 28.9 pg (27.0-33.0); MEAN CORPUSCULAR HGB CONC 30.5 g/dl (32.0-36.5); MEAN CORPUSCULAR VOLUME 94.8 fl (80.0-96.0); MONO # 0.4 10^3/uL (0.0-0.8); MONO % 7.4 % (0.0-5.0); NEUTROPHILS # 3.6 10^3/uL (1.5-8.5); NEUTROPHILS % 72.4 % (36.0-66.0); PLATELET COUNT, AUTOMATED 250 10^3/uL (150-450); RED BLOOD COUNT 3.87 10^6/uL (4.00-5.40)
[2020-01-06 05:54] LABS: ALBUMIN 2.3 GM/DL (3.2-5.2); ALT/SGPT 34 U/L (12-78); BILIRUBIN,TOTAL 0.4 MG/DL (0.2-1.0); BLOOD UREA NITROGEN 42 MG/DL (7-18); CALCIUM LEVEL 9.3 MG/DL (8.8-10.2); CARBON DIOXIDE LEVEL 27 MEQ/L (21-32); CHLORIDE LEVEL 108 MEQ/L (98-107); CREATININE FOR GFR 0.44 MG/DL (0.55-1.30); GLOMERULAR FILTRATION RATE > 60.0 (>32); GLUCOSE, FASTING 116 MG/DL (70-100); POTASSIUM SERUM 4.3 MEQ/L (3.5-5.1); SODIUM LEVEL 141 MEQ/L (136-145); TOTAL PROTEIN 6.9 GM/DL (6.4-8.2)
[2020-01-06] MEDS: METOPROLOL TART 25 MG TABLET PO SCH ×2 (06:20→15:54)
[2020-01-06] MEDS ORDERED: DIGOXIN INJ 0.5 MG/2 ML AMP (J1160) IV ONE (06:30)
[2020-01-06 08:00] VITALS: BP 120/72
[2020-01-06] MEDS: DOCUSATE SODIUM 100 MG CAP PO SCH ×2 (09:39→21:01)
[2020-01-06] MEDS: FERROUS SULFATE 325MG TAB PO SCH (09:40)
[2020-01-06] MEDS: MONTELUKAST 10 MG TAB PO SCH (09:40)
[2020-01-06] MEDS: OMEPRAZOLE 20 MG CAP PO SCH (09:40)
[2020-01-06] MEDS: RIVAROXABAN 15 MG TAB (XARELTO) PO SCH ×2 (09:40→21:01)
[2020-01-06 12:00] VITALS: BP 130/72
--- NOTE | 2020-01-06 13:14 | IPNPDOC ---
Text Note Date of Service The patient was seen on 01/06/20. NOTE Subjective: No any acute events overnight. No fever or chills, chest pain, naty rrhea or dysuria. Objective: General Exam: Alert, Cooperative Eye Exam: PERRLA, Conjunctiva & lids normal ENT Exam: Atraumatic, mucous membr. moist/pink Neck Exam: Supple Chest Exam: diminished lung sounds Heart Exam: irregular, irregularly, tachy at rate 130 Abdomen Exam: Normal bowel sounds, Soft, Tenderness Skin Exam: Nl turgor and temperature Neuro Exam: Strength at 5/5 X4 ext, Cranial Nerves 3-12 NL Psych Exam: Mood NL, Oriented x 3 A/P 84 year old female with a history of COPD, recent admission for an aspiration pneumonia (4weeks ago) and Bronchial PNA /PE (few days ago) presented to the ED with Chief complaint of Rt flank pain. Pt was found to have AFIB with RVR in ED. Pt recently developed PNA 2/2 aspiration, but was DC without anti Bx as procalc were WNL. Pt had wbc count of 14.1 on admission. Ceftaroline was started empirically. Atrial fibrillation with rapid ventricular response Pt is on Xarelto c/w metoprolol 25 mg PO TID History of pulmonary embolus (PE) Pt recently Dx with PE on 12/30/19 Pt was discharged home next day on PO anti coagulation Xarelto COPD exacerbation c/w inhalers acapella and incentive spirometry Pneumonia 2/2 most likely aspiration Pt recently developed aspiration as well bronchial PNA CT chest: COPD, bronchiectasis, and interstitial disease with a reticulonodular component. Bilateral airspace disease, disproportionately localized in the right middle lobe and lingula. Additional poorly defined parenchymal density in the posterior segment of the right upper lobe. Bronchial calcification. Stable poorly defined nodular density in the left upper lobe. sputum CS pending Urine legionella pending serum mycoplasma pending Levofloxacin started Diet was modified. Deconditioning/Cachexia Bitemporal wasting, low BMI, muscle wasting Certified Pest Control Technician eval Ensure PT/OT VS,Fishbone, I+O VS, Fishbone, I+O Laboratory Tests 01/06/20 05:22 Vital Signs Date Time Temp Pulse Resp B/P (MAP) Pulse Ox O2 Delivery O2 Flow Rate FiO2 01/06/20 08:00 97.4 107 20 120/72 (88) 94 Room Air I&O- Last 24 Hours up to 6 AM 01/06/20 05:59 Intake Total 840 ml Output Total 200 ml Balance 640 ml ALPESH DUFF DO Jan 06, 2020 13:14
[2020-01-06] MEDS ORDERED: METOPROLOL TART 50 MG TAB PO ONE (14:00)
[2020-01-06] MEDS: LevoFLOXacin 500 MG TABLET PO SCH (15:30)
[2020-01-06 16:00] VITALS: BP 98/68
[2020-01-06 20:00] VITALS: BP 127/72
[2020-01-06] MEDS ORDERED: MAGIC MOUTHWASH SUSPENSION BTL SSP PRN (21:15)
[2020-01-07] VITALS: BP 150/70
[2020-01-07] MEDS: METOPROLOL TART 25 MG TABLET PO SCH (00:19)
[2020-01-07] MEDS: IPRATROPIUM 0.5MG/ALBUTEROL 2.5MG INH SOL UD 3ML (DUONEB) NEB SCH ×3 (02:00→20:07)
[2020-01-07 04:00] VITALS: BP 168/79
[2020-01-07 04:45] LABS: BASO % 0.5 % (0.0-1.0); EOS # 0.1 10^3/uL (0.0-0.5); EOS % 1.2 % (0.0-3.0); HEMATOCRIT 34.4 % (36.0-47.0); HEMOGLOBIN 10.8 g/dl (12.0-15.5); LYMPH # 0.9 10^3/uL (1.5-5.0); MEAN CORPUSCULAR HEMOGLOBIN 29.5 pg (27.0-33.0); MEAN CORPUSCULAR HGB CONC 31.4 g/dl (32.0-36.5); MONO # 0.4 10^3/uL (0.0-0.8); NEUTROPHILS # 2.8 10^3/uL (1.5-8.5); NEUTROPHILS % 66.8 % (36.0-66.0); PLATELET COUNT, AUTOMATED 247 10^3/uL (150-450); RED BLOOD COUNT 3.66 10^6/uL (4.00-5.40); WHITE BLOOD COUNT 4.2 10^3/uL (4.0-10.0)
[2020-01-07 05:05] LABS: BLOOD UREA NITROGEN 36 MG/DL (7-18); CALCIUM LEVEL 8.9 MG/DL (8.8-10.2); CARBON DIOXIDE LEVEL 33 MEQ/L (21-32); CHLORIDE LEVEL 105 MEQ/L (98-107); CREATININE FOR GFR 0.46 MG/DL (0.55-1.30); GLOMERULAR FILTRATION RATE > 60.0 (>32); GLUCOSE, FASTING 96 MG/DL (70-100); POTASSIUM SERUM 4.2 MEQ/L (3.5-5.1); SODIUM LEVEL 140 MEQ/L (136-145)
[2020-01-07] MEDS: LevoFLOXacin 500 MG TABLET PO SCH (05:48)
[2020-01-07] MEDS: SLF 3 ML SYR IV SCH ×3 (05:49→21:01)
[2020-01-07 08:00] VITALS: BP 143/67
[2020-01-07] MEDS: FERROUS SULFATE 325MG TAB PO SCH (08:29)
[2020-01-07] MEDS: RIVAROXABAN 15 MG TAB (XARELTO) PO SCH ×2 (08:29→21:01)
[2020-01-07] MEDS: DOCUSATE SODIUM 100 MG CAP PO SCH ×2 (08:29→21:00)
[2020-01-07] MEDS: MONTELUKAST 10 MG TAB PO SCH (08:29)
[2020-01-07] MEDS: OMEPRAZOLE 20 MG CAP PO SCH (08:29)
[2020-01-07] MEDS: METOPROLOL TART 50 MG TAB PO SCH ×3 (08:30→23:46)
--- NOTE | 2020-01-07 10:52 | IPNPDOC ---
Text Note Date of Service The patient was seen on 01/07/20. NOTE Subjective: No any acute events overnight. No fever or chills, chest pain, naty rrhea or dysuria. Objective: General Exam: Alert, Cooperative Eye Exam: PERRLA, Conjunctiva & lids normal ENT Exam: Atraumatic, mucous membr. moist/pink Neck Exam: Supple Chest Exam: diminished lung sounds Heart Exam: irregular, irregularly Abdomen Exam: Normal bowel sounds, Soft, Tenderness Skin Exam: Nl turgor and temperature Neuro Exam: Strength at 5/5 X4 ext, Cranial Nerves 3-12 NL Psych Exam: Mood NL, Oriented x 3 A/P 84 year old female with a history of COPD, recent admission for an aspiration pneumonia (4weeks ago) and Bronchial PNA /PE (few days ago) presented to the ED with Chief complaint of Rt flank pain. Pt was found to have AFIB with RVR in ED. Pt recently developed PNA 2/2 aspiration, but was DC without anti Bx as procalc were WNL. Pt had wbc count of 14.1 on admission. Ceftaroline was started empirically. Atrial fibrillation HR under control Pt is on Xarelto c/w metoprolol 50 mg PO TID History of pulmonary embolus (PE) Pt recently Dx with PE on 12/30/19 Pt was discharged home next day on PO anti coagulation Xarelto COPD exacerbation c/w inhalers acapella and incentive spirometry Pneumonia 2/2 most likely aspiration Pt recently developed aspiration as well bronchial PNA CT chest: COPD, bronchiectasis, and interstitial disease with a reticulonodular component. Bilateral airspace disease, disproportionately localized in the right middle lobe and lingula. Additional poorly defined parenchymal density in the posterior segment of the right upper lobe. Bronchial calcification. Stable poorly defined nodular density in the left upper lobe. sputum CS pending Urine legionella pending serum mycoplasma pending Levofloxacin started Diet was modified. Appreciate/agree with pulm consult. There is concern for lung malignancy Deconditioning/Cachexia Bitemporal wasting, low BMI, muscle wasting Coremaking Supervisor eval Ensure PT/OT VS,Fishbone, I+O VS, Fishbone, I+O Laboratory Tests 01/07/20 04:33 Vital Signs Date Time Temp Pulse Resp B/P (MAP) Pulse Ox O2 Delivery O2 Flow Rate FiO2 9/5/20 08:30 87 143/67 01/07/20 08:00 98.4 18 100 Room Air I&O- Last 24 Hours up to 6 AM0 01/07/20 06:00 Intake Total 770 ml Output Total 225 ml Balance 545 ml ALPESH DUFF DO Jan 07, 2020 10:52
[2020-01-07 12:00] VITALS: BP 118/59
[2020-01-07 16:00] VITALS: BP 156/76
[2020-01-07 20:00] VITALS: BP 135/64
[2020-01-07] MEDS: CEVIMELINE PO SCH (23:47)
[2020-01-08] VITALS: BP 158/71
[2020-01-08] MEDS: IPRATROPIUM 0.5MG/ALBUTEROL 2.5MG INH SOL UD 3ML (DUONEB) NEB SCH ×2 (01:29→07:25)
[2020-01-08 04:00] VITALS: BP 157/63
[2020-01-08 04:24] LABS: BASO % 0.5 % (0.0-1.0); EOS # 0.1 10^3/uL (0.0-0.5); EOS % 1.4 % (0.0-3.0); HEMATOCRIT 37.8 % (36.0-47.0); HEMOGLOBIN 11.6 g/dl (12.0-15.5); LYMPH # 1.1 10^3/uL (1.5-5.0); LYMPH % 25.4 % (24.0-44.0); MEAN CORPUSCULAR HEMOGLOBIN 28.9 pg (27.0-33.0); MEAN CORPUSCULAR HGB CONC 30.7 g/dl (32.0-36.5); MONO # 0.4 10^3/uL (0.0-0.8); MONO % 8.9 % (0.0-5.0); NEUTROPHILS # 2.7 10^3/uL (1.5-8.5); NEUTROPHILS % 63.6 % (36.0-66.0); PLATELET COUNT, AUTOMATED 277 10^3/uL (150-450); RED BLOOD COUNT 4.02 10^6/uL (4.00-5.40); WHITE BLOOD COUNT 4.3 10^3/uL (4.0-10.0)
[2020-01-08 04:49] LABS: BLOOD UREA NITROGEN 28 MG/DL (7-18); CARBON DIOXIDE LEVEL 34 MEQ/L (21-32); CHLORIDE LEVEL 105 MEQ/L (98-107); GLOMERULAR FILTRATION RATE > 60.0 (>32); GLUCOSE, FASTING 97 MG/DL (70-100); MAGNESIUM LEVEL 2.1 MG/DL (1.8-2.4); POTASSIUM SERUM 4.2 MEQ/L (3.5-5.1); SODIUM LEVEL 139 MEQ/L (136-145)
[2020-01-08] MEDS: LevoFLOXacin 500 MG TABLET PO SCH (05:24)
[2020-01-08] MEDS: CEVIMELINE PO SCH ×2 (05:24→14:17)
[2020-01-08] MEDS: SLF 3 ML SYR IV SCH ×2 (05:25→14:17)
[2020-01-08 06:50] VITALS: BP 125/64
[2020-01-08] MEDS: DOCUSATE SODIUM 100 MG CAP PO SCH (08:00)
[2020-01-08] MEDS: OMEPRAZOLE 20 MG CAP PO SCH (08:00)
[2020-01-08] MEDS: MONTELUKAST 10 MG TAB PO SCH (08:00)
[2020-01-08 08:01] VITALS: BP 125/64
[2020-01-08] MEDS: METOPROLOL TART 50 MG TAB PO SCH (08:01)
[2020-01-08] MEDS: RIVAROXABAN 15 MG TAB (XARELTO) PO SCH (08:01)
[2020-01-08] MEDS: FERROUS SULFATE 325MG TAB PO SCH (08:01)
[2020-01-08] MEDS ORDERED: ENTER DRUG NAME HERE (PATIENT'S OWN MED) PO SCH ×3 (09:00)
[2020-01-08] MEDS ORDERED: LEVA1TAB2 PO (11:41)
[2020-01-08] MEDS ORDERED: METO1TAB33 PO (11:41)
--- NOTE | 2020-01-08 15:49 | DS.PDOC ---
Discharge Summary General Date of Admission Jan 04, 2020 at 14:23 Date of Discharge 01/08/20 Discharge Summary PROCEDURES PERFORMED DURING STAY: [None]. ADMITTING DIAGNOSES: Atrial fibrillation History of pulmonary embolus (PE) COPD exacerbation Pneumonia Deconditioning/Cachexia DISCHARGE DIAGNOSES: Atrial fibrillation History of pulmonary embolus (PE) COPD exacerbation Pneumonia Deconditioning/Cachexia COMPLICATIONS/CHIEF COMPLAINT: Atrial Fibrillation With Rvr. HISTORY OF PRESENT ILLNESS: 84 year old female with a history of COPD, recent admission for an aspiration pneumonia (4weeks ago) and Bronchial PNA /PE (few days ago) presented to the ED with Chief complaint of Rt flank pain. Pt was fou nd to have AFIB with RVR in ED. Pt recently developed PNA 2/2 aspiration, but was DC without anti Bx as procalc were WNL. Pt had wbc count of 14.1 on admission. Ceftaroline was started empirically. HOSPITAL COURSE: During hospital stay the following issues were adressed Atrial fibrillation HR was stabilized Pt is on Xarelto c/w metoprolol 50 mg PO TID History of pulmonary embolus (PE) Pt recently Dx with PE on 12/30/19 Xarelto COPD exacerbation c/w inhalers acapella and incentive spirometry Pneumonia 2/2 most likely aspiration Pt recently developed aspiration as well bronchial PNA CT chest: COPD, bronchiectasis, and interstitial disease with a reticulonodular component. Bilateral airspace disease, disproportionately localized in the right middle lobe and lingula. Additional poorly defined parenchymal density in the posterior segment of the right upper lobe. Bronchial calcification. Stable poorly defined nodular density in the left upper lobe. sputum CS pending Urine legionella pending serum mycoplasma pending Levofloxacin started Diet was modified. f/u with judo instructor in the outpt settings Deconditioning/Cachexia Bitemporal wasting, low BMI, muscle wasting Vending Manager eval Ensure PT/OT DISCHARGE MEDICATIONS: Please see below. ALLERGIES: Please see below. PHYSICAL EXAMINATION ON DISCHARGE: VITAL SIGNS: Please see below. General Exam: Alert, Cooperative Neck Exam: Supple Chest Exam: diminished lung sounds Heart Exam: irregular, irregularly Abdomen Exam: Normal bowel sounds, Soft, Tenderness Skin Exam: Nl turgor and temperature Neuro Exam: Strength at 5/5 X4 ext, Cranial Nerves 3-12 NL Psych Exam: Mood NL, Oriented x 3 LABORATORY DATA: Please see below. IMAGING: Exam: CT Chest Without Contrast Exam date and time: 01/04/2020 3:10 PM Age: 84 years old Clinical indication: Chest pain; Additional info: Ll linfiltrate TECHNIQUE: Imaging protocol: Computed tomography of the chest without contrast. 3D rendering (Not supervised by radiologist): MIP and/or 3D reconstructed images were created by the technologist. Radiation optimization: All CT scans at this facility use at least one of these dose optimization techniques: automated exposure control; mA and/or kV adjustment per patient size (includes targeted exams where dose is matched to clinical indication); or iterative reconstruction. COMPARISON: CT ANGIO CHEST 12/30/2019 1:08 PM FINDINGS: Tubes, catheters and devices: Termination of med port catheter in the distal superior vena cava. Lungs: COPD, bronchiectasis, and interstitial disease with a reticulonodular component. Bilateral airspace disease, disproportionately localized in the right middle lobe and lingula. Additional poorly defined parenchymal density in the posterior segment of the right upper lobe. Bronchial calcification. Stable poorly defined nodular density in the left upper lobe. Pleural space: Biapical scarring. Trace pleural effusions. Heart: Borderline cardiomegaly and coronary artery calcification. Pulmonary arteries: Reassessment of previously documented pulmonary emboli cannot be performed in the absence of intravenous contrast. Aorta: Calcification and ectasia of the thoracic aorta. No Lymph nodes: No pathologically enlarged lymph nodes. Upper abdomen: Splenic granulomata. Left collecting system contrast. Left adrenal enlargement. Bones/joints: Degenerative change, Schmorl's nodes, and mild degenerative change. Soft tissues: Punctate bilateral breast calcifications. When correlating with the previous study, no significant interval changes are present. IMPRESSION: Stable appearance of the chest, not significantly changed from 12/30/19. Electronically signed by: Bipin Antony On 01/04/2020 15:35:41 PM DD: BIPIN ANTONY MD 01/04/20 1510 DT: KAREEM 01/04/20 1535 DS: TERESA 01/04/20 1535 PROGNOSIS: fair ACTIVITY: [As tolerated]. DIET: cardiac DISPOSITION: 06 Home Health Service. ITEMS TO FOLLOWUP ON ON OUTPATIENT: with judo instructor and design analyst DISCHARGE CONDITION: [Stable]. TIME SPENT ON DISCHARGE: Greater than 40 minutes. Vital Signs/I&Os Vital Signs Date Time Temp Pulse Resp B/P (MAP) Pulse Ox O2 Delivery O2 Flow Rate FiO2 01/08/20 08:01 68 125/64 01/08/20 06:50 98.6 16 96 Room Air I&O- Last 24 Hours up to 6 AM 01/08/20 06:00 Intake Total 840 ml Output Total 50 ml Balance 790 ml Laboratory Data Labs 24H Laboratory Tests 2 01/08/20 04:11: Immature Granulocyte % (Auto) 0.2, Neutrophils (%) (Auto) 63.6, Lymphocytes (%) (Auto) 25.4, Monocytes (%) (Auto) 8.9H, Eosinophils (%) (Auto) 1.4, Basophils (%) (Auto) 0.5, Neutrophils # (Auto) 2.7, Lymphocytes # (Auto) 1.1L, Monocytes # (Auto) 0.4, Eosinophils # (Auto) 0.1, Basophils # (Auto) 0.0, Nucleated Red Blood Cells % (auto) 0.0, Anion Gap 0L, Glomerular Filtration Rate > 60.0, Calcium Level 9.0, Magnesium Level 2.1 CBC/BMP Laboratory Tests 01/08/20 04:11 Discharge Medications Scheduled Anastrozole (Anastrozole) 1 Mg Tablet, 1 MG PO DAILY, (Reported) Cevimeline HCl (Cevimeline HCl) 30 Mg Capsule, 30 MG PO Q8H, (Reported) Ferrous Sulfate (Ferrous Sulfate) 325 Mg Tablet.dr, 325 MG PO QAM, (Reported) Ipratropium/Albuterol Sulfate (Iprat-Albut 0.5-3(2.5) mg/3 ml) 3 Ml Ampul.neb, 1 DOSE INH BID, (Reported) Levofloxacin (Levaquin) 500 Mg Tablet, 500 MG PO DAILY@06 Lutein (Lutein) 20 Mg Tablet, 20 MG PO QAM, (Reported) Metoprolol Succinate (Metoprolol Succinate) 100 Mg Tab.er.24h, 100 MG PO DAILY Mirabegron (Myrbetriq) 25 Mg Tab.er.24h, 25 MG PO DAILY, (Reported) Montelukast Sodium (Singulair) 10 Mg Tablet, 10 MG PO DAILY, (Reported) Omeprazole (Omeprazole) 20 Mg Capsule.dr, 20 MG PO DAILY, (Reported) Rivaroxaban (Xarelto) 15 Mg Tablet, 15 MG PO BID, (Reported) Scheduled PRN Amlodipine Besylate (Norvasc) 5 Mg Tablet, 5 MG PO DAILY PRN for HYPERTENSION, (Reported) TAKES WENERI SBP IS OVER 130 Allergies Coded Allergies: No Known Allergies (Verified Allergy, Unknown, 12/30/19) ALPESH DUFF DO Jan 08, 2020 15:48
--- NOTE | 2020-01-16 12:41 | ECGEPIP ---
[facility] - ED Test Date: 2020-01-04 Pat Name: MACK GONZALEZ Department: Room: [facility] Gender: Female Advertising Teacher: doug : 1935 Requested By: JERED Hoff PA-C Order Number: [id number] Reading MD: Sonja Carranza Measurements Intervals [place] Rate: 138 P: NM: 0 QRS: -55 QRSD: 126 T: 117 QT: 303 QTc: 460 Interpretive Statements ATRIAL FIBRILLATION WITH RAPID VENTRICULAR RESPONSE MARKED LEFT AXIS DEVIATION LEFT BUNDLE BRANCH BLOCK ABNORMAL ECG SEE SCANNED DOWNTIME REPORT.
== END 2020-01-08 15:16 | disposition home health service (06) | DRG 177 ==
LOC: M ED 10:20 → M ED INP 14:23 → ENRESERV 17:04 → M PCU 19:00
PROVIDERS: ADMIT Internal Medicine; ATTEND Internal Medicine
DX: J69.0 Pneumonitis due to inhalation of food and vomit (principal); E43 Unspecified severe protein-calorie malnutrition; J44.1 Chronic obstructive pulmonary disease with (acute) exacerbation; R64 Cachexia; I27.82 Chronic pulmonary embolism; I48.91 Unspecified atrial fibrillation; Z85.3 Personal history of malignant neoplasm of breast; Z85.79 Personal history of other malignant neoplasms of lymphoid, hematopoietic and related tissues; M35.00 Sjogren syndrome, unspecified; Z86.73 Personal history of transient ischemic attack (TIA), and cerebral infarction without residual deficits; Z79.01 Long term (current) use of anticoagulants; Z79.899 Other long term (current) drug therapy

== ENCOUNTER → 2020-01-25 | Outpatient (CLI) | payer MEDICARE, OTHER ==
[~2020-01-25] MED LIST changes: +ANAS1TAB2 PO; +ATOR1TAB19 PO; +FERR325T3 PO; +LUTE20TA2 PO; +METO1TAB33 PO; +MYRB25TA PO; +NORV5TAB PO; +OMEP-218; +SING10TA32 PO
--- NOTE | 2020-01-27 08:54 | REP ---
TWO-VIEW CHEST HISTORY: Aspiration pneumonia. TECHNIQUE: PA and lateral views of the chest performed and compared to prior study of 01/04/2020. FINDINGS: Lungs are unchanged in appearance with scattered bilateral interstitial opacities appearing stable. No new lung opacities are seen bilaterally. Heart is normal in size. There is calcification of the thoracic aorta. Mediastinal silhouette is unchanged. Right central venous catheter is again seen with the tip in the superior vena cava. There is again mild curvature of the thoracic spine convex to the right with diffuse degenerative changes. IMPRESSION: Stable chest radiographs when compared to prior study of 01/04/2020. MTDD
== END ==
LOC: M RAD 11:06
PROVIDERS: ATTEND Physician Assistant
DX: J69.0 Pneumonitis due to inhalation of food and vomit (principal)

== ENCOUNTER → 2020-02-08 | Outpatient (CLI) | payer MEDICARE, OTHER ==
--- NOTE | 2020-02-08 13:59 | REPMRS ---
Patient History The patient states she had a clinical breast exam in August 2019. Patient has history of cancer in the right breast at age 81, has history of other cancer at age 65, and has history of breast cancer. No known family history of cancer. Malignant lumpectomy of the right breast. Taking tamoxifen for 3 years. 3D TOMOSYNTHESIS WAS PERFORMED. TIFFANIE Lopez Digital Woman Screen Mammo: February 08, 2020 - Exam #: [id number] Bilateral CC and MLO view(s) were taken. Technologist: Pamela Mcguire, Technologist Prior study comparison: December 30, 2018, bilateral digital mammo screening bilat, performed at [facility]. December 2017, bilateral digital mammo screening bilat, performed at [facility]. FINDINGS: The breast tissue is extremely dense which could obscure a lesion on mammography. There has been no change in the appearance of the mammogram from the prior studies. There is a moderate amount of residual fibroglandular tissue which is fairly symmetric. There is no interval development of dominant mass, areas of architectural distortion, or clustered microcalcification typical of malignancy. Assessment: BI-RADS/ACR category 1 mammogram. Negative Mammogram. Recommendation Routine screening mammogram in 1 year (for women over age 40). This mammogram was interpreted with the aid of an FDA-approved computer-aided dectection system. Electronically Signed By: Ronny Sykes MD 02/08/20 [id number]
== END ==
LOC: M WHC 11:21
PROVIDERS: ATTEND Physician Assistant
DX: Z12.31 Encounter for screening mammogram for malignant neoplasm of breast (principal); Z85.3 Personal history of malignant neoplasm of breast